=== PATIENT | female | born 1975 | race Caucasian/White ===

== ENCOUNTER 2020-01-07 22:23 | Observation (INO) | payer BC, SELFPAY ==
--- NOTE | ~2020-01-07 | US_ITS ---
EXAMINATION: US right upper quadrant DATE: 01/08/2020 10:05 INDICATION: Cholecystitis. Right upper quadrant abdominal pain. TECHNIQUE: Multiple grayscale and Doppler ultrasound images of the abdomen were obtained. COMPARISON: None FINDINGS: The pancreatic head and body are normal in appearance. The pancreatic tail is not visualized. Liver has normal echogenicity and contour, with a smooth surface. No liver lesion identified. There is mild intrahepatic biliary ductal dilation. Portal venous flow was seen in the hepatopetal, normal directi on and has normal Doppler waveform. There are multiple small mobile shadowing gallstones at the gallb ladder fundus. Gallbladder is otherwise normal. Sonographic Mendoza sign was reported as negative by t textile artist.Common bile duct measures up to 6 mm in maximal diameter which is at the upper limits of normal. IMPRESSION: 1. Cholelithiasis with mild intrahepatic biliary ductal dilation and borderline dilation of the commo n bile duct and could not exclude a distal at least partially obstructing stone. Correlate with liver function tests and could consider MRCP for further evaluation. 2. Otherwise normal gallbladder with no wall thickening or sonographic Mendoza sign to suggest to sugg est acute cholecystitis. Reviewed, dictated and finalized at location A. IMPRESSION: 1. Cholelithiasis with mild intrahepatic biliary ductal dilation and borderline dilation of the common bile duct and could not exclude a distal at least parti ally obstructing stone. Correlate with liver function tests and could consider MRCP for further evaluation. 2. Otherwise normal gallbladder with no wall thickening or sonographic Mendoza s ign to suggest to suggest acute cholecystitis.
--- NOTE | ~2020-01-07 | CT_ITS ---
EXAMINATION: CT abdomen pelvis w con INDICATION: Right upper quadrant abdominal pain, nausea, vomiting TECHNIQUE: Computed tomographic images of the abdomen and pelvis were obtained after the administrati on of 100 cc of Omnipaque 350 intravenous contrast. The dose-length product (DLP) was 1348.23 mGy-cm. Automated exposure control and iterative reconstruction technique were employed. COMPARISON: None available FINDINGS: Minimal dependent atelectasis is present in the lung bases. The heart size is normal. There is a 6 mm subcapsular cyst in the right hepatic lobe. The liver is otherwise unremarkable. A 10 mm a rhoda of low attenuation in the inferior pole of the spleen likely represents a lymphangioma or hemangi fracisco. The pancreas and adrenal glands are normal. There is mild gallbladder distention. The common ijeoma e duct measures up to 9 mm in its midportion. There is mild intrahepatic biliary dilatation. The kidn eys are unremarkable. No pathologically enlarged abdominal or pelvic lymph nodes are identified. Ther e is no free intraperitoneal gas or evidence of bowel obstruction. The appendix is normal. 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 IMPRESSION: 1. Gallbladder distention with mild enlargement of the mid common bile duct and mild intrahepatic ijeoma iary dilatation. Findings could reflect choledocholithiasis although none is seen. Reviewed, dictated and finalized at location A. IMPRESSION: 1. Gallbladder distention with mild enlargement of the mid common bile duct and mild intrahepatic biliary dilatation. Findings could reflect choledocholithias is although none is seen.
--- NOTE | ~2020-01-07 | XR_ITS ---
EXAMINATION: 01/08/2020 14:45 DATE: 01/10/2020 13:41 CDT INDICATION: Cholecystectomy, intraoperative cholangiogram TECHNIQUE: Intraoperative cholangiogram with 2 contrast run(s) provided for review. 20 seconds of flu oroscopy. 111 fluoroscopic images. FINDINGS: There is cannulation and contrast administration into the cystic duct remnant. The cystic a nd common bile duct are mildly dilated. There is a filling defect in the common duct which may repres ent a gas bubble or stone. No obstruction of flow of contrast into the duodenum. IMPRESSION: 1. Filling defect in the common bile duct, iatrogenic gas versus stone. No obstruction. 2: Mildly dilated common bile duct.. Please refer to procedural report for details. Reviewed, dictated and finalized at location A. IMPRESSION: 1. Filling defect in the common bile duct, iatrogenic gas versus stone. No obs truction. 2: Mildly dilated common bile duct.. Please refer to procedural report for det ails.
[2020-01-07 22:25] VITALS: BP 138/90; PULSE 77; RESP 18; TEMP 36.6; O2SAT 100
--- NOTE | 2020-01-07 22:34 | ED.ABDPAIN ---
HPI - Abdominal Pain General Chief Complaint: Abdominal Pain Stated Complaint: nausea and tender abd Time Seen by Provider: 01/07/20 22:29 Source: patient Mode of arrival: ambulatory Limitations: no limitations History of Present Illness HPI narrative: The pt is a 44 y/o female who presents to the ED c/o epigastric ABD pain onset one day ago. Pt states that she had eaten some chips yesterday when the pain began, and states that the pain resolved with Pepcid and Motrin. She notes that she also felt some gas between her shoulder blades at that time. She began to experience the pain again today with no relief from either of these; she took Motrin again at [id number]. Pt states that the pain is beginning to radiate under the breast. Pt reports nausea, but denies fever. She notes that she still has her gallbladder. MD elicited complaint: abdominal pain Onset (ago): day(s) (1) Location: epigastric Radiation: other (Under the breast) Relieving factors: medication (Motrin and Pepcid (no longer)) Associated symptoms: nausea and other ( Gas between the shoulder blades (Resolved)) Treatments prior to arrival: NSAIDs Related Data Home Medications Medication Instructions Recorded Confirmed citalopram mg 01/07/20 hydrochlorothiazide 01/07/20 losartan 01/07/20 potassium chloride meq PO 01/07/20 Allergies Allergy/AdvReac Type Severity Reaction Status Date / Time No Known Allergies Allergy Unverified 01/07/20 22:28 Review of Systems Review of Systems: All systems reviewed & are unremarkable except as noted in HPI and below Constitutional: Constitutional: Denies fever(s) Gastrointestinal: Gastrointestinal: Reports abdominal pain (Epigastric, radiating to underneath the breast), Reports nausea and Reports other ( Gas between the shoulder blades (Resolved)) [facility] Past Medical History Medical History (Updated 01/08/20 @ 00:44 by Aditya Isaac DO) Depression HTN (hypertension) Surgical History Surgical History (Updated 01/07/20 @ 22:39 by Everardo Tinajero) H/O tubal ligation Social History Social History (Updated 01/07/20 @ 22:39 by Everardo Tinajero) Smoking status: Never smoker Gender identity (if verbalized by the patient): Female Exam Narrative: Exam Narrative: APPEARANCE: No acute distress, nontoxic, resting in bed HEENT: Normocephalic, atraumatic, OMM RESPIRATORY: No respiratory distress, clear to auscultation bilaterally with no rhonchi wheezing or rales CARDIOVASCULAR: RRR s murmur ABDOMINAL: Soft, nondistended, tender palpation epigastric and right upper quadrant, no tenderness right lower quadrant, left lower quadrant left upper quadrant, no rebound or guarding MUSCULOSKELETAl: Moves all extremities. No clubbing, cyanosis or edema. NEURO: Awake and alert. Following commands, speech normal, no focal deficits SKIN:: Warm, dry. Normal Color PSYCHIATRIC: Normal affect/mood Course Course Emergency Course: Discussed Dr. Spencer presentation work-up. His admission to his service. Request patient started on Zosyn. Request a.m. hypertensive medications be ordered and patient to have ultrasound in the a.m. Discussed with patient and family results of workup and diagnosis. Discussed need for admission. Patient and family understand and agree to current treatment plan Vital Signs Vital signs: Vital Signs Temperature 97.9 F 01/07/20 22:25 Pulse Rate 77 01/07/20 22:25 Respiratory Rate 18 01/07/20 22:25 Blood Pressure 138/90 01/07/20 22:25 Pulse Oximetry 100 01/07/20 22:25 Temperature 97.9 F 01/07/20 22:25 Pulse Rate 85 01/07/20 23:30 Respiratory Rate 18 01/07/20 23:30 Blood Pressure 129/82 01/07/20 23:30 Pulse Oximetry 99 01/07/20 23:30 MDM - Abdominal Pain Lab Data Result diagrams: 01/07/20 22:57 01/07/20 23:17 Labs: Lab Results 01/07/20 01/07/20 01/07/20 Range/Units 22:57 22:57 22:57 WBC 15.3 H (4.5-10.0) K/mm3
[2020-01-07] MEDS: LACTATED RINGERS 1,000 ML 999 ML IV CONT (22:53)
[2020-01-07] MEDS: ONDANSETRON INJ 4 MG/2 ML VIAL IV PUSH (22:53)
[2020-01-07] MEDS: MORPHINE SULFATE 4 MG/ML INJ IV PUSH (22:54)
[2020-01-07 23:05] LABS: Basophils Absolute Auto 0.1 K/mm3 (0.0-0.1); Basophils Percent Auto 0.8 % (0.2-1.2); Eosinophils Absolute Auto 0.2 K/mm3 (0-0.3); Eosinophils Percent Auto 1.2 % (0-4.4); Hematocrit 40.2 % (37.0-47.0); Hemoglobin 13.5 g/dL (12.0-15.0); Immature Granulocyte Absolute 0.06 K/mm3 (0.00-0.031); Immature Granulocyte Percent A 0.4 % (0-0.5); Lymphocytes Absolute Auto 2.08 K/mm3 (0.9-3.2); Lymphocytes Percent Auto 13.6 % (18.3-44.2); Mean Corpuscular HGB Conc 33.6 g/dl (32-36); Mean Corpuscular Hemoglobin 28.8 pg (26-34); Mean Corpuscular Volume 85.9 fl (80-100); Mean Platelet Volume 9.3 fl (7.4-10.4); Monocytes Absolute Auto 0.6 K/mm3 (0.1-0.6); Monocytes Percent Auto 4.1 % (2.6-8.5); Neutrophils Absolute Auto 12.2 K/mm3 (1.3-6.7); Neutrophils Percent Auto 79.9 % (45.5-73.1); Platelet Count Result 401 k/mm3 (150-375); Red Blood Count 4.68 M/mm3 (4.2-5.4); Red Cell Distribution Width 12.5 % (11.5-14.5); White Blood Count 15.3 K/mm3 (4.5-10.0)
--- NOTE | 2020-01-07 23:11 | PC.NURSE ---
pt down to ct
[2020-01-07 23:15] LABS: Add Urine Microscopic? YES; Appearance Urine Clear (Clear); Bacteria Urine Trace /hpf; Bilirubin Urine Negative (Negative); Blood Urine Negative (Negative); Color Urine Yellow (Yellow); Glucose Urine UA Negative (Negative); Ketones Urine Negative (Negative); Leukocyte Esterase Ur Trace LEU/UL (Negative); Mucus Urine Rare /lpf; Nitrate Urine Negative (Negative); Protein Urine Negative (Negative); RBC Urine 0-2 /hpf (0-2); Specific Grav Ur 1.023 (1.001-1.035); Squamous Epithelial Cell Urine Few /hpf (Few); WBC Urine 0-3 /hpf
[2020-01-07 23:17] LABS: Alanine Aminotransferase 165 U/L (4-35); Albumin Level 4.2 g/dL (3.5-5.1); Alkaline Phosphatase 107 U/L (38-126); Aspartate Amino Transferase 265 U/L (14-36); Bilirubin,Total 1.1 mg/dL (0.2-1.3); Blood Urea Nitrogen 18 mg/dL (7-17); Calcium 8.8 mg/dL (8.4-10.2); Carbon Dioxide 27 mmol/L (22-30); Chloride 100 mmol/L (98-107); Estimated CRCL calculation 94 ml/min; Estimated Glomerular Filt Rate > 60; Glucose 103 mg/dL (65-105); Lipase 72 U/L (23-300); Potassium 3.5 mmol/L (3.4-5.0); Sodium 136 mmol/L (137-145)
[2020-01-07 23:19] LABS: Estimated CRCL calculation 94 ml/min; Estimated Glomerular Filt Rate > 60
[2020-01-07 23:30] VITALS: BP 129/82; PULSE 85; RESP 18; O2SAT 99
--- NOTE | 2020-01-07 23:30 | PC.NURSE ---
ASSUMED CARE OF PT AT THIS TIME.
[2020-01-08] VITALS (16 sets, daily range): BP systolic 106–138; BP diastolic 63–96; PULSE 62–101; RESP 12–18; TEMP 36.1–36.8; O2SAT 91–100; BMI 37.6
--- NOTE | 2020-01-08 01:14 | ADMGEN ---
This patient, Fidelina Morales, was admitted to 2 Medical Room 242-. Patient/family oriented to hospital policies and general routines including ID bracelet, bed and alarms, visiting hours, pain management, procedures, bathroom and other care routines, personal items, smoking policy, room service/diet, and visiting hours. Valuables list has been completed. Information on how to activate the Rapid Response Team has been discussed. Patient/Family are encouraged to report perceived risks to care and to ask questions if they do not understand what they are told or what they should do.
[2020-01-08] MEDS: LACTATED RINGERS 1,000 ML 125 ML IV CONT ×3 (01:39→20:13)
[2020-01-08] MEDS: ONDANSETRON INJ 4 MG/2 ML VIAL IV PUSH ×3 (06:39→21:52)
[2020-01-08] MEDS: MORPHINE SULFATE 4 MG/ML INJ IV PUSH ×2 (06:40→16:47)
--- NOTE | 2020-01-08 08:08 | PM.IMHP ---
H&P: HPI History of Present Illness Chief complaint: Cholecystitis Narrative: Fidelina Morales is a 44 year old female with a history of hypertension, who presented the emergency department with epigastric abdominal pain. She reports that two nights ago she had eaten Fritos for a snack in the evening and shortly after developed some mild epigastric abdominal pain that radiated to between her shoulder blades. She took Zantac and Ibuprofen, which alleviated her pain. Symptoms resolved and she felt normal the next morning. Yesterday afternoon, she ate pulled pork, mashed potatoes, and Fritos for late lunch, and shortly after developed the same epigastric abdominal pain. This pain then radiated to the right upper quadrant and again to her back. The pain yesterday was more severe and unrelenting. Since the abdominal pain was not subsiding, she decided to present to the emergency department for further evaluation. CT scan of the abdomen and pelvis showed gallbladder distension with mild enlargement of the mid common bile duct and mild intrahepatic biliary dilatation to 9 mm. No cholelithiasis or choledocholithiasis evident on the CT scan. Labs revealed a white blood cell count of 15,300, total bilirubin of 1.1, AST 265, ALT 165, alk phos 107, and normal lipase. Our service was contacted by the emergency department physician for the suspicion possible acute cholecystitis. The patient is now being seen on the medical floor. She reports that her abdominal has improved with the PRN pain medication but remains constant. Denies nausea at this time. She reports developing nausea yesterday but no vomiting. Denies fever, chills, diarrhea, or change in her bowel habits. She denies having this abdominal pain in the past. No other complaints at this time. Review of Systems Constitutional: Constitutional: Reports as per HPI, Denies chills, Denies excessive sweating, Denies fatigue, Denies fever(s), Denies headache(s) and Denies weakness Eyes: Eyes: Denies change in vision and Denies loss of vision ENT: Reports Normal hearing present, Denies dizziness and Denies headache(s) Cardiovascular: Cardiovascular: Denies chest pain, Denies syncope, Denies leg edema, Denies lightheadedness, Denies radiating jaw, neck or arm pain and Denies dyspnea Respiratory: Respiratory: Denies cough, Denies dyspnea and Denies wheezing Gastrointestinal: Gastrointestinal: Reports as per HPI, Reports abdominal pain (epigastric and RUQ), Denies melena, Denies hematochezia, Denies change in bowel habits, Denies constipation, Denies dysphagia, Denies diarrhea, Reports nausea, Denies vomiting and Reports other (Last BM yesterday.) Musculoskeletal: Musculoskeletal: Denies deformity, Denies joint swelling, Denies radiating pain into limb and Denies tingling Integumentary/Breasts: Skin/Breast: Denies pruritus, Denies wounds and Denies jaundice Neurologic: Reports Normal hearing present, Denies confusion, Denies dizziness, Denies syncope, Denies headache(s), Denies loss of vision, Denies tingling, Denies tremor(s) and Denies weakness Psychiatric: Psychiatric: Denies anxiety and Reports depression (takes citalopram for mild depressive symptoms) Endocrine: Endocrine: Denies cold intolerance, Denies excessive sweating, Denies fatigue and Denies heat intolerance Hematologic/Lymphatic: Hematologic/Lymphatic: Denies easy bleeding and Denies easy bruising Allergic/Immunologic: Allergic/Immunologic: Denies wheezing PMFSH Past Medical History Medical History Depression HTN (hypertension) Surgical History Surgical History H/O tubal ligation Family History Family History Mother Hypertension Depression Father High cholesterol Social History Social History Smoking status: Former smoker T
[2020-01-08] MEDS: LOSARTAN POTASSIUM 100 MG TABLET PO (08:40)
[2020-01-08] MEDS: hydroCHLOROthiazide 25 MG TABLET PO (08:40)
[2020-01-08 09:26] LABS: Basophils Absolute Auto 0.1 K/mm3 (0.0-0.1); Basophils Percent Auto 0.9 % (0.2-1.2); Eosinophils Absolute Auto 0.2 K/mm3 (0-0.3); Eosinophils Percent Auto 1.8 % (0-4.4); Hematocrit 36.8 % (37.0-47.0); Hemoglobin 12.1 g/dL (12.0-15.0); Immature Granulocyte Absolute 0.04 K/mm3 (0.00-0.031); Immature Granulocyte Percent A 0.4 % (0-0.5); Lymphocytes Absolute Auto 1.63 K/mm3 (0.9-3.2); Lymphocytes Percent Auto 15.5 % (18.3-44.2); Mean Corpuscular HGB Conc 32.9 g/dl (32-36); Mean Corpuscular Hemoglobin 28.9 pg (26-34); Mean Platelet Volume 8.9 fl (7.4-10.4); Monocytes Absolute Auto 0.8 K/mm3 (0.1-0.6); Monocytes Percent Auto 7.7 % (2.6-8.5); Neutrophils Absolute Auto 7.8 K/mm3 (1.3-6.7); Neutrophils Percent Auto 73.7 % (45.5-73.1); Platelet Count Result 319 k/mm3 (150-375); Red Blood Count 4.18 M/mm3 (4.2-5.4); Red Cell Distribution Width 12.6 % (11.5-14.5); White Blood Count 10.5 K/mm3 (4.5-10.0)
[2020-01-08 09:38] LABS: Alanine Aminotransferase 381 U/L (4-35); Albumin Level 3.5 g/dL (3.5-5.1); Alkaline Phosphatase 101 U/L (38-126); Aspartate Amino Transferase 336 U/L (14-36); Bilirubin,Total 0.9 mg/dL (0.2-1.3); Blood Urea Nitrogen 15 mg/dL (7-17); Calcium 8.1 mg/dL (8.4-10.2); Carbon Dioxide 30 mmol/L (22-30); Chloride 101 mmol/L (98-107); Estimated CRCL calculation 97 ml/min; Estimated Glomerular Filt Rate > 60; Glucose 92 mg/dL (65-105); Potassium 3.6 mmol/L (3.4-5.0); Sodium 135 mmol/L (137-145)
--- NOTE | 2020-01-08 13:06 | PC.NURSE ---
Patient to OR per bed. IV saline locked.
--- NOTE | 2020-01-08 13:11 | P.HPUP_ITS ---
History and Physical Update Update Date/Time: 01/08/20 13:11 History and Physical has been reviewed, including an updated exam of the patient. There are NO changes in the patient's condition. Patient did have an ultrasound that proved that she has gallstones in her gallbladder. Also que stion whether there might be a distal common bile duct stone. Risks, benefits, and alternatives of a laparoscopic cholecystectomy, possible intraoperative cholangiogram, possible open cholecystectomy. Have been discussed and questions answered. Patient agrees to proceed with procedure.
[2020-01-08] MEDS: LACTATED RINGERS 1,000 ML 30 ML IV CONT ×2 (13:15→15:17)
--- NOTE | 2020-01-08 13:37 | WPDANESEPP ---
Anes - Eval Pre Procedure Procedure: Operation Date: 01/08/20 14:00 Proposed Procedures p Laparoscopic Cholecystectomy,Possible Intraoperative Cholangiograms,Possible Open - Filippo Spencer MD Date/Time: 01/08/20 13:37 Surgeon: Dr Spencer Preop Diagnosis: Cholecystitis Pre Op Diagnosis: Cholecystitis Patient Data Age: 44 Gender: F Height: 5 ft 6 in Weight: 105.8 kg Last Vital Signs Temp 36.8 C 01/08/20 13:25 Pulse 85 01/08/20 13:25 Resp 18 01/08/20 13:25 BP 136/87 01/08/20 13:25 Pulse Ox 98 01/08/20 13:25 Allergies Allergy/AdvReac Type Severity Reaction Status Date / Time No Known Allergies Allergy Unverified 01/07/20 22:28 Home Medications Medication Instructions Recorded Confirmed Type citalopram 40 mg PO DAILY 01/07/20 01/08/20 History hydrochlorothiazide 25 mg PO DAILY 01/07/20 01/08/20 History losartan 100 mg PO DAILY 01/07/20 01/08/20 History potassium chloride 20 meq PO DAILY 01/07/20 01/08/20 History Laboratory Tests 01/07/20 01/07/20 01/07/20 22:57 22:57 22:57 WBC 15.3 K/mm3 H K/mm3 (4.5-10.0) RBC 4.68 M/mm3 M/mm3 (4.2-5.4) Hgb 13.5 g/dL g/dL (12.0-15.0) Hct 40.2 % % (37.0-47.0) MCV 85.9 fl fl (80-100) MCH 28.8 pg pg (26-34) MCHC 33.6 g/dl g/dl (32-36) RDW 12.5 % % (11.5-14.5) Plt Count 401 k/mm3 H k/mm3 (150-375) MPV 9.3 fl fl (7.4-10.4) Immature Gran % (Auto) 0.4 % % (0-0.5) Neut % (Auto) 79.9 % H % (45.5-73.1) Lymph % (Auto) 13.6 % L % (18.3-44.2) [place] % (Auto) 4.1 % % (2.6-8.5) Eos % (Auto) 1.2 % % (0-4.4) Baso % (Auto) 0.8 % % (0.2-1.2) Lymph # (Auto) 2.08 K/mm3 K/mm3 (0.9-3.2) [place] # (Auto) 0.6 K/mm3 K/mm3 (0.1-0.6) Eos # (Auto) 0.2 K/mm3 K/mm3 (0-0.3) Baso # (Auto) 0.1 K/mm3 K/mm3 (0.0-0.1) Abs Immat Gran (auto) 0.06 K/mm3 H K/mm3 (0.00-0.031) Absolute Neuts (auto) 12.2 K/mm3 H K/mm3 (1.3-6.7) Absolute Nucleated RBC 0.0 K/mm3 K/mm3 (0.0-0.012) Nucleated RBC % 0.0 % % (0.0-0.2) Sodium 136 mmol/L L mmol/L (137-145) Potassium 3.5 mmol/L mmol/L (3.4-5.0) Chloride 100 mmol/L mmol/L (98-107) Carbon Dioxide 27 mmol/L mmol/L (22-30) BUN 18 mg/dL H mg/dL (7-17) Creatinine 0.80 mg/dL mg/dL (0.7-1.0) Estim Creat Clear Calc 94 ml/min ml/min Estimated GFR > 60 (59 - ) Glucose 103 mg/dL mg/dL (65-105) Calcium 8.8 mg/dL mg/dL (8.4-10.2) Total Bilirubin 1.1 mg/dL mg/dL (0.2-1.3) AST 265 U/L H U/L (14-36) ALT 165 U/L H U/L (4-35) Alkaline Phosphatase 107 U/L U/L (38-126) Total Protein 7.0 g/dL g/dL (6.3-8.2) Albumin 4.2 g/dL g/dL (3.5-5.1) Lipase 72 U/L U/L (23-300) Urine Color Yellow (Yellow) Urine Appearance Clear (Clear) Urine pH 6.0 (5.0-9.0) Ur Specific [place] 1.023 (1.001-1.035) Urine Protein Negative mg/dL mg/dL (Negative) Urine Glucose (UA) Negative mg/dL mg/dL (Negative) Urine Ketones Negative mg/dL mg/dL (Negative) Ur Blood (Man) Negative (Negative) Urine Nitrate Negative (Negative) Urine Bilirubin Negative (Negative) Urine Urobilinogen 2.0 mg/dL H mg/dL (<2.0) Leukocyte Esterase Rfl Trace FRAN/UL H FRAN/UL (Negative) Urine RBC 0-2 /hpf /hpf (0-2) Urine WBC 0-3 /hpf /hpf Ur Squamous Epith Cells Few /hpf /hpf (Few) Urine Bacteria Trace /hpf /hpf Urine Mucus Rare /lpf /lpf 01/07/20 01/08/20 01/08/20 23:17 09:19 09:19 WBC 10.5 K/mm3 H K/mm3 (4.5-10.0) RBC 4.18 M/mm
[2020-01-08] MEDS: BUPIVACAINE/EPINEPHRINE 0.5% 30 ML VIAL 20 ML INFILTRATE (14:10)
--- NOTE | 2020-01-08 15:21 | P.OP_ITS ---
Procedure Note - Detailed Date of procedure: 01/08/20 Pre-op diagnosis: Cholecystitis Procedure performed: Laparoscopic cholecystectomy with intraoperative cholangiogram. Description of procedure: Procedure Details: Patient was seen preoperatively in the holding area and risks, benefits and alternatives confirmed. Patient was taken to the operating room and general anesthesia was induced. A time out was then preformed with the surgery team confirming patient and site of surgery. The abdomen was prepped and draped in the usual sterile fashion. Incision was made just below the umbilicus. Two stay sutures of O- Vicryl were used to elevate the mid-line fascia beneath the umbilicus and a small incision was made under direct vision. The peritoneum was entered. The 12 mm Rodriguez cannula was introduced under direct vision. First under low flow and then under high flow the abdomen was insufflated with carbon dioxide never exceeding a pressure of 14. Three 5 mm trocars were then introduced under direct vision. The following trocars were introduced under direct vision: a 5 mm in the epigastrium and two 5 mm trocars along the right costal margin. There were not many adhesions so I immediately began working at the level of the triangle of [place] to expose the cystic duct and cystic artery. The gall bladder was grasped and the cystic duct and artery were dissected free and clipped with an 5 mm endo-clip countersinker balance screw hole. A small hole was made in the cystic duct with endoshears and a cholagio-cath introduced. A cholangiogram was obtained revealing free flow into the cystic duct, common bile duct, common hepatic, right and left hepatic ducts with free flow into the duodenum with an equivical filling defect in extrahepatic biliary tree and some dilation. Filling defect appeared to be about 5 mm in size and seemed be floating in the common duct. Did not appear that I would be able to flush this through the more narrow distal common duct. Therefore, I decided to leave it as was and we will repeat her liver function tests and if she has further symptoms consider MRCP to check and see if there is a stone there. If it shows up then she may need ERCP in the near future. The catheter was removed and the cystic duct was clipped with a 5 mm endoclip-countersinker balance screw hole. The cystic duct was then transected. The cystic artery was also transected at this point. The gall bladder was removed using electrocautery and then removed using a large 10 mm grasper via the umbilical incision. The trocars were removed visualizing hemostasis and the remaining gas evacuated. The large trocar site at the umbilicus was closed with an 0 vicryl figure of 8 suture. The 2 stay sutures mentioned above on either side of the fascia were also tied together to help approximate this midline fascia. Further local anesthetic was placed into each incision for postop pain control. The skin incisions were closed with a subcuticular of 4-0 Monocryl. Surgical glue then was applied to all the incisions. Patient tolerated the procedure well was taken to the recovery room in good condition. Anesthesia: BELLEA Surgeon: Filippo Spencer MD [place] Investigator: CHIN Salas, OR 1st assist Estimated blood loss (mL): 20 Drains: No Packing: No Pathology: yes (The gallbladder) Complications: No immediate complications Condition: stable Disposition: PACU Findings: Palpable stones within otherwise noninflamed gallbladder. The equivocal finding of a possible 5 mm filling defect that was floating in the distal common bile duct with good flow of contrast into the duodenum.
--- NOTE | 2020-01-08 16:43 | PC.NURSE ---
Patient return from OR per bed.
[2020-01-08] MEDS: SENNA/DOCUSATE SODIUM TABLET 2 TAB PO (20:11)
[2020-01-09 02:00] VITALS: BP 118/72; PULSE 64; RESP 18; TEMP 36.5; O2SAT 96
[2020-01-09] MEDS: ONDANSETRON INJ 4 MG/2 ML VIAL IV PUSH ×2 (04:56→11:39)
[2020-01-09] MEDS: LACTATED RINGERS 1,000 ML 125 ML IV CONT (05:26)
[2020-01-09 06:00] VITALS: BP 109/63; PULSE 80; RESP 18; TEMP 37; O2SAT 97
[2020-01-09 06:24] LABS: Basophils Absolute Auto 0.1 K/mm3 (0.0-0.1); Basophils Percent Auto 0.4 % (0.2-1.2); Eosinophils Percent Auto 0.1 % (0-4.4); Hematocrit 36.7 % (37.0-47.0); Hemoglobin 12.1 g/dL (12.0-15.0); Immature Granulocyte Absolute 0.08 K/mm3 (0.00-0.031); Immature Granulocyte Percent A 0.5 % (0-0.5); Lymphocytes Absolute Auto 1.48 K/mm3 (0.9-3.2); Lymphocytes Percent Auto 8.9 % (18.3-44.2); Mean Corpuscular Hemoglobin 29.2 pg (26-34); Mean Corpuscular Volume 88.4 fl (80-100); Mean Platelet Volume 9.2 fl (7.4-10.4); Monocytes Absolute Auto 0.7 K/mm3 (0.1-0.6); Monocytes Percent Auto 4.1 % (2.6-8.5); Neutrophils Absolute Auto 14.3 K/mm3 (1.3-6.7); Platelet Count Result 372 k/mm3 (150-375); Red Blood Count 4.15 M/mm3 (4.2-5.4); Red Cell Distribution Width 12.3 % (11.5-14.5); White Blood Count 16.7 K/mm3 (4.5-10.0)
[2020-01-09 06:58] LABS: Alanine Aminotransferase 277 U/L (4-35); Albumin Level 3.6 g/dL (3.5-5.1); Alkaline Phosphatase 89 U/L (38-126); Aspartate Amino Transferase 124 U/L (14-36); Bilirubin,Total 0.5 mg/dL (0.2-1.3); Blood Urea Nitrogen 9 mg/dL (7-17); Calcium 8.3 mg/dL (8.4-10.2); Carbon Dioxide 32 mmol/L (22-30); Chloride 96 mmol/L (98-107); Estimated CRCL calculation 126 ml/min; Estimated Glomerular Filt Rate > 60; Glucose 111 mg/dL (65-105); Lipase 21 U/L (23-300); Sodium 134 mmol/L (137-145)
[2020-01-09] MEDS: ENOXAPARIN 40 MG/0.4 ML SYRINGE SUB-Q (08:59)
[2020-01-09] MEDS: hydroCHLOROthiazide 25 MG TABLET PO (08:59)
[2020-01-09] MEDS: LOSARTAN POTASSIUM 100 MG TABLET PO (08:59)
[2020-01-09] MEDS: ACETAMINOPHEN 500 MG TABLET PO (09:21)
--- NOTE | 2020-01-09 11:06 | PC.NURSE ---
Notified Dr. Joseph of potassium (3.0) today.
--- NOTE | 2020-01-09 11:10 | WPDANESPN ---
Anes - Prog Note Post-Op Date/Time: 01/09/20 11:10 Cardiovascular status: normal Respiratory status: normal Airway patency: baseline Mental status: baseline Post-Op hydration status: normal Vital Signs: Last Vital Signs Temp 37.0 C 01/09/20 06:00 Pulse 80 01/09/20 06:00 Resp 18 01/09/20 06:00 BP 109/63 01/09/20 06:00 Pulse Ox 97 01/09/20 06:00 I/O: Intake & Output 01/08/20 01/09/20 01/09/20 23:59 07:59 15:59 Intake Total 1500 1600 Balance 1500 1600 Laboratory Tests 01/09/20 05:05 01/09/20 05:05 01/09/20 01/09/20 05:05 05:05 WBC 16.7 H RBC 4.15 L Hgb 12.1 Hct 36.7 L MCV 88.4 MCH 29.2 MCHC 33.0 RDW 12.3 Plt Count 372 MPV 9.2 Immature Gran % (Auto) 0.5 Neut % (Auto) 86.0 H Lymph % (Auto) 8.9 L [place] % (Auto) 4.1 Eos % (Auto) 0.1 Baso % (Auto) 0.4 Lymph # (Auto) 1.48 [place] # (Auto) 0.7 H Eos # (Auto) 0.0 Baso # (Auto) 0.1 Abs Immat Gran (auto) 0.08 H Absolute Neuts (auto) 14.3 H Absolute Nucleated RBC 0.0 Nucleated RBC % 0.0 Sodium 134 L Potassium 3.0 L Chloride 96 L Carbon Dioxide 32 H BUN 9 D Creatinine 0.60 L Estim Creat Clear Calc 126 Estimated GFR > 60 Glucose 111 H Calcium 8.3 L Total Bilirubin 0.5 AST 124 H ALT 277 H Alkaline Phosphatase 89 Total Protein 6.0 L Albumin 3.6 Lipase 21 L Post-procedural complaints: none Patient Feedback: Patient satisfied with anesthetic care.
--- NOTE | 2020-01-09 11:41 | PM.DS ---
DS: Diagnosis Admitting Diagnosis Admitting Diagnosis: Cholecystitis, unspecified Discharge Diagnosis (1) Cholelithiasis with chronic cholecystitis: Code(s): K80.10 - Calculus of gallbladder with chronic cholecystitis without obstruction Status: Acute Assessment and Plan: Patient underwent laparoscopic cholecystectomy by Dr. Spencer on January 08, 2020. Intraoperative cholangiogram as well as follow-up LFTs showed no evidence of common bile duct stones. (2) Elevated LFTs: Code(s): R94.5 - Abnormal results of liver function studies Status: Acute Assessment and Plan: Air bubble seen on cholangiogram but follow-up LFTs were improved after surgery. Patient discharged. No suggestion of common bile duct stones. (3) Obesity (BMI 30-39.9): Code(s): E66.9 - Obesity, unspecified Status: Acute (4) HTN (hypertension): Code(s): I10 - Essential (primary) hypertension Status: Acute (5) Hypokalemia: Code(s): E87.6 - Hypokalemia Status: Acute Assessment and Plan: Patient will resume her potassium supplement 20 mEq daily at discharge. DS: Summary Time Spent with Patient Time attestation: Total time spent providing and/or coordinating discharge services: Patient came to the emergency room late in the evening on January 06. She had postprandial epigastric abdominal pain after a fatty meal. Evaluation suggested cholecystitis. An ultrasound done on 01/07 showed gallstones and possibly common bile duct stones with a slightly dilated common bile duct. The patient was taken to surgery on 01/[address] Spencer. She underwent laparoscopic cholecystectomy with intraoperative cholangiogram. There was evidence of a an air bubble or possibly a small stone in the distal common bile duct on cholangiogram. The patient was observed overnight. She was doing well with good oral intake ambulating and no inordinate amount of discomfort. Her follow-up liver function tests the day after surgery were improved. She is discharged now in good condition. She did have some mild hypokalemia but will resume taking her potassium supplement at home. Exam Const: General: comfortable and no acute distress; No confusion Orientation/consciousness: patient oriented x3 and No confusion Resp: Effort & Inspection: normal respiratory effort Auscultation: clear to auscultation bilaterally Cardio: Rate: regular rate Rhythm: regular rhythm GI: Inspection: non-distended and incision (All incisions healing well) GI Palp: Yes Soft to palpation, Yes Tenderness to palpation present (GI) (Mild appropriate postoperative tenderness), No Guarding due to palpation present (GI) and No Rebound tenderness present Auscultation: normal bowel sounds Neuro: General: patient oriented x3, no focal motor deficits and No confusion Extrem: General: no calf tenderness and no edema Psych: Affect: normal affect Insight: Good insight present (Psych) Judgement: Good judgement present (Psych) DS: Data Data Completed and Pending Pending studies at discharge: Pending at discharge 01/08/20 14:02 Surgical [PTH] Routine Labs on day of discharge: Labs from last 24 hours 01/09/20 01/09/20 05:05 05:05 WBC 16.7 H RBC 4.15 L Hgb 12.1 Hct 36.7 L MCV 88.4 MCH 29.2 MCHC 33.0 RDW 12.3 Plt Count 372 MPV 9.2 Immature Gran % (Auto) 0.5 Neut % (Auto) 86.0 H Lymph % (Auto) 8.9 L Ware % (Auto) 4.1 Eos % (Auto) 0.1 Baso % (Auto) 0.4 Lymph # (Auto) 1.48 Ware # (Auto) 0.7 H Eos # (Auto) 0.0 Baso # (Auto) 0.1 Abs Immat Gran (auto) 0.08 H Absolute Neuts (auto) 14.3 H Absolute Nucleated RBC 0.0 Nucleated RBC % 0.0 Sodium 134 L Potassium 3.0 L Chloride 96 L Carbon Dioxide 32 H BUN 9 D Creatinine 0.60 L Estim Creat Clear Calc 126 Estimated GFR > 60 Glucose 111 H Calcium 8.3 L Total Bilirubin 0.5 AST 124 H ALT 277 H Alkaline Phosphat
[2020-01-09 12:12] VITALS: O2SAT 95
== END 2020-01-09 12:50 | disposition home or self-care (01) ==
LOC: ANHED 01-08 00:44 → ANH2MED 01-08 01:02
PROVIDERS: Admitting Provider Surgery; Emergency Provider Emergency Medicine; Visit Provider Surgery
PROC: 0FT44ZZ Resection of Gallbladder, Percutaneous Endoscopic Approach (ICD-10-PCS; CPT 47562; principal; 2020-01-08 14:00)
DX: K80.10 Calculus of gallbladder with chronic cholecystitis without obstruction (principal); I10 Essential (primary) hypertension; R94.5 Abnormal results of liver function studies; E87.6 Hypokalemia; F41.9 Anxiety disorder, unspecified; E66.9 Obesity, unspecified; Z68.37 Body mass index [BMI] 37.0-37.9, adult; Z87.891 Personal history of nicotine dependence
CPT/HCPCS: 47563; 36415; 74177; 74300; 76705; 80053; 81001; 81025; 83690; 85025; 88304; 96361; 96365; 96366; 96375; 96376; 99285; A9270; G0378; J0330; J1100; J1650; J2250; J2270; J2370; J2405; J2543; J2704; J2710; J3010; J7120; Q9966; Q9967

== ENCOUNTER 2021-11-28 07:35 | Outpatient (CLI) | payer BC, SELFPAY ==
--- NOTE | 2021-11-30 17:30 | WPDSLEEPSTUD ---
Sleep Study Date of Study: 11/28/21 Ordering Provider: Viri Gamez MD Interpreting Physician: Olga López MD Sleep Study Type: CPAP Titration Height: 1.68 m Weight: 123.831 kg Body Mass Index: 44.0 Neck Circumference (inches): 16.5 [place]: 9 Reason for Sleep Study Snoring, nonrestorative sleep, excessive daytime sleepiness * HSAT Oct 04, 2021 with AHI 71.1 Sleep History Fidelina Morales is a 46-year-old female who had a portable home sleep apnea test on October 04, 2021 showing 351 obstructive apneas, 9 mixed apneas and 13 central apneas with 160 hypopneas. The supine apnea-hypopnea index was 58.2, nonsupine apnea-hypopnea index was 71.9. Desaturation index was 72.7 with a minimum desaturation to 53%, mean saturation of 89% and 93.7 minute spent below 88%. She had moderate snoring. This was a type III home sleep test through an outside facility. She was referred for a CPAP titration. She does not feel rested after a full night of sleep. This has been going on for more than 2 years. 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 There is a positive family history of sleep disordered breathing in her brother who in April of 2021. She does not awaken from sleep feeling short of breath. She rarely awakens with heartburn, belching or coughing. She comes Linda nor sleep. She frequently has trouble sleeping with a cold. She does not wake up gasping for breath at night or have breathing problems at night reported to her byOthers. She does not sweat excessively at night or notice her heart pounding or beating irregularly at night. She does not allow herself to fall asleep during the day but feels sleepy enough that she could go to sleep if she had an opportunity. She occasionally falls asleep involuntarily but never falls asleep while driving. She rarely has loss of muscle tone with strong emotion. She rarely has daytime difficulties due to excessive sleepiness. 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 She does not feel paralyzed on waking or falling asleep. She rarely has vivid dreamlike scenes upon awakening or falling asleep. She does not feel afraid to go to sleep. She does not have nightmares. She does not remember dreams. She does not have racing thoughts. She occasionally feels sad or depressed. She rarely has anxiety. She denies muscular tension, noticing parts of her body jerking, kicking at night, crawling and aching feelings in her legs or any kind of leg pain at night. She does not have morning jaw pain or grind her teeth during sleep. She is not bothered by pain during the day. She rarely is awakened by pain at night. She constantly wakes up feeling stiff in the morning with sore achy muscles and pain in the neck and spine. She has headaches, memory problems, fatigue and depression. Normal bedtime is between 10:00 p.m. and 11:00 p.m. falling asleep within 30-45 minutes, waking once at night to urinate. She wakes the morning at 5:30 a.m.. On weekends bedtime is later, 11:00 p.m. to 12 midnight and she wakes later, 7:00 a.m. to 8:00 a.m.. She estimates getting 6-8 hours of sleep normally. On the weekends she does not awaken using an alarm. She does not generally take naps. A short nap is not refreshing. She is usually drowsy in the morning for 3 hours or longer. She feels better in the morning compared to other times of day. Habits: Former tobacco user quit 25 years ago. Caffeine Mountain Dew, 6 servings per day. No alcohol or recreational drugs. [facility] Past Medical History Medical History Depression Depression HTN (hypertension) KIM (obstructive sleep apnea) Surgical History Surgical History H/O tubal ligation History of cholecystectomy Family History Family History (Reviewed 11/30/21 @ 17:35 by Olga Woodall
[2021-11-30 17:46] VITALS: BMI 44.0
== END 2021-11-29 06:49 | disposition home or self-care (01) ==
LOC: ANHCSM 07:36
PROVIDERS: PCP Family Medicine; Visit Provider Family Medicine
DX: G47.33 Obstructive sleep apnea (adult) (pediatric) (principal)
CPT/HCPCS: 95811

== ENCOUNTER 2023-05-22 02:35 | Day surgery (SDC) | payer BC, SELFPAY ==
[2023-05-10 12:40] VITALS: BMI 38.2
--- NOTE | 2023-05-21 16:52 | PM.HPGS ---
History of Present Illness History of Present Illness Consent: Risks, benefits, and alternatives have been discussed and questions answered. Patient agrees to proceed with procedure. Chief complaint: other fecal abnormalities Narrative: Fidelina Morales is a 48 year old female referred for colon cancer screening. A recent Cologuard test was positive Review of Systems Review of Systems: All systems reviewed & are unremarkable except as noted in HPI and below PMFSH Past Medical History Medical History Depression Depression HTN (hypertension) KIM (obstructive sleep apnea) (~09/2021) Positive colorectal cancer screening using Cologuard test Surgical History Surgical History H/O tubal ligation History of cholecystectomy Family History Family History Mother Hypertension Depression Father High cholesterol Hypertension Sibling Pulmonary hypertension Sibling Depression Hypertension Alcohol abuse Grandparent Diabetes mellitus Social History Social History Smoking packs per day: 0.5 Smoking cigarettes per day: 10.0 Years smoked: 4 Smoking pack-years: 2.00 Smoking status: Former smoker Tobacco type: cigarettes Smoking end date: 10/21/95 Alcohol intake: never Substance use: never Substance use type: does not use Lack of Transportation: No Lack of Food: Never True Current Housing: I Have Housing Concerned About Future Housing: No Difficulty Paying Gas/Electric Bills: No Difficulty Paying for Meds: No Currently Unemployed: No Education: Master's Degree or Higher Difficulty w/ Childcare or Family Care: No Living arrangements: with family Additional living arrangements comments: Has a and two children. 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 Gender identity (if verbalized by the patient): Female Spiritual care concerns: No Agree to blood products: Yes Meds Home Medications and Allergies Home Medications Medication Instructions Recorded Confirmed Type losartan 100 mg tablet 100 mg PO DAILY #90 tabs 09/30/22 05/10/23 Rx tirzepatide 5 mg/0.5 mL 5 mg subcut WEEKLY 02/20/23 05/10/23 History subcutaneous pen injector citalopram 40 mg tablet 40 mg PO DAILY #30 tabs 02/24/23 05/10/23 Rx progesterone micronized 100 mg 100 mg PO QAM 03/14/23 05/10/23 History capsule bupropion HCl 300 mg 24 hr tablet, 300 mg PO QAM #30 tabs 03/26/23 05/10/23 Rx extended release hydrochlorothiazide 25 mg tablet 25 mg PO DAILY #30 tabs 04/13/23 05/10/23 Rx Allergies Allergy/AdvReac Type Severity Reaction Status Date / Time No Known Allergies Allergy Verified 05/22/23 10:41 Exam Const: General: alert Orientation/consciousness: patient oriented x3 Resp: Auscultation: clear to auscultation bilaterally Cardio: Rate: regular rate Rhythm: regular rhythm GI: GI Palp: Yes Soft to palpation and No Tenderness to palpation present (GI) Neuro: General: patient oriented x3 Assessment and Plan Assessment and plan (1) Positive colorectal cancer screening using Cologuard test: Code(s): R19.5 - Other fecal abnormalities Status: Acute Assessment and Plan: Colonoscopy with possible biopsy or polypectomy or cautery or injection of substances.
[2023-05-22 10:43] VITALS: BP 127/85; PULSE 80; RESP 19; TEMP 36.8; O2SAT 96
[2023-05-22] MEDS: LACTATED RINGERS 1,000 ML 150 ML IV CONT (10:57)
--- NOTE | 2023-05-22 11:21 | WPDANESEPPF ---
Anes - Initial Pre Proc Eval Procedure: Operation Date: 05/22/23 11:30 Proposed Procedures p Colonoscopy - Phuc Larsen MD Date/Time: 05/22/23 11:21 Surgeon: Phuc Larsen MD Pre Op Diagnosis: other fecal abnormalities Patient Data Age: 48 Gender: F Height: 1.68 m Weight: 101.7 kg Last Vital Signs Temp 98.2 F 05/22/23 10:43 Pulse 80 05/22/23 10:43 Resp 19 05/22/23 10:43 BP 127/85 05/22/23 10:43 Pulse Ox 96 05/22/23 10:43 O2 Del Method Room Air 05/22/23 10:43 Allergies Allergy/AdvReac Type Severity Reaction Status Date / Time No Known Allergies Allergy Verified 05/22/23 10:41 Home Medications Medication Instructions Recorded Confirmed Type losartan 100 mg tablet 100 mg PO DAILY #90 tabs 09/30/22 05/10/23 Rx tirzepatide 5 mg/0.5 mL 5 mg subcut WEEKLY 02/20/23 05/10/23 History subcutaneous pen injector citalopram 40 mg tablet 40 mg PO DAILY #30 tabs 02/24/23 05/10/23 Rx progesterone micronized 100 mg 100 mg PO QAM 03/14/23 05/10/23 History capsule bupropion HCl 300 mg 24 hr tablet, 300 mg PO QAM #30 tabs 03/26/23 05/10/23 Rx extended release hydrochlorothiazide 25 mg tablet 25 mg PO DAILY #30 tabs 04/13/23 05/10/23 Rx Patient hx anesthesia problems: none Family hx anesthesia problems: none Results Review: All pre-operative results and documents have been reviewed as part of the pre-operative evaluation. [facility] Past Medical History Medical History (Updated 04/08/23 @ 12:09 by Andreia Linares PA-C) Depression Depression HTN (hypertension) KIM (obstructive sleep apnea) (~09/2021) Positive colorectal cancer screening using Cologuard test Surgical History Surgical History H/O tubal ligation History of cholecystectomy Family History Family History Mother Hypertension Depression Father High cholesterol Hypertension Sibling Pulmonary hypertension Sibling Depression Hypertension Alcohol abuse Grandparent Diabetes mellitus Social History Social History Smoking packs per day: 0.5 Smoking cigarettes per day: 10.0 Years smoked: 4 Smoking pack-years: 2.00 Smoking status: Former smoker Tobacco type: cigarettes Smoking end date: 10/21/95 Alcohol intake: never Substance use: never Substance use type: does not use Lack of Transportation: No Lack of Food: Never True Current Housing: I Have Housing Concerned About Future Housing: No Difficulty Paying Gas/Electric Bills: No Difficulty Paying for Meds: No Currently Unemployed: No Education: Master's Degree or Higher Difficulty w/ Childcare or Family Care: No Living arrangements: with family Additional living arrangements comments: Has a and two children. 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 Gender identity (if verbalized by the patient): Female Spiritual care concerns: No Agree to blood products: Yes Anes - Eval Final PreProcedure Day of Procedure 05/22/23 11:21 Patient weight: obese Heart: regular rate and rhythm Lungs: clear to auscultation Airway: Mallampati scale class III Neurological: alert and oriented Last oral intake: >/= 8 hours ASA classification: III Emergent: no Anesthetic plan: proceed Anesthesia type and monitoring: general GIVS and standard monitoring Results Review: All pre-operative results and documents have been reviewed as part of the pre-operative evaluation. Informed Consent: The patient's anesthetic plan and its attendant risks and benefits were discussed with the patient/family/POA. Questions were solicited and answers provided to the satisfaction of the patient/family/POA.
[2023-05-22 12:04] VITALS: BP 104/65; PULSE 73; RESP 26; O2SAT 98
[2023-05-22 12:14] VITALS: BP 113/74; PULSE 68; RESP 18; O2SAT 100
[2023-05-22 12:24] VITALS: BP 110/70; PULSE 69; RESP 18; O2SAT 100
== END 2023-05-22 12:32 | disposition home or self-care (01) ==
PROVIDERS: PCP Family Medicine; Visit Provider Internal Medicine Gastroenterology
PROC: 0DJD8ZZ Inspection of Lower Intestinal Tract, Via Natural or Artificial Opening Endoscopic (ICD-10-PCS; CPT 45378; principal; 2023-05-22 11:30)
DX: Z12.11 Encounter for screening for malignant neoplasm of colon (principal); D12.8 Benign neoplasm of rectum; R19.5 Other fecal abnormalities; I10 Essential (primary) hypertension; G47.33 Obstructive sleep apnea (adult) (pediatric); F32.A Depression, unspecified; Z87.891 Personal history of nicotine dependence; E66.9 Obesity, unspecified; Z68.36 Body mass index [BMI] 36.0-36.9, adult
CPT/HCPCS: 45385; 88305; J2704; J7120

== ENCOUNTER 2023-06-05 08:23 | Outpatient (CLI) | payer BC, SELFPAY ==
[2023-06-05 08:38] LABS: Basophils Absolute Auto 0.1 K/mm3 (0.0-0.1); Basophils Percent Auto 0.8 % (0.2-1.2); Eosinophils Absolute Auto 0.1 K/mm3 (0-0.3); Eosinophils Percent Auto 0.7 % (0-4.4); Hematocrit 42.3 % (37.0-47.0); Hemoglobin 13.5 g/dL (12.0-15.0); Immature Granulocyte Absolute 0.04 K/mm3 (0.00-0.031); Immature Granulocyte Percent A 0.4 % (0-0.5); Lymphocytes Absolute Auto 1.79 K/mm3 (0.9-3.2); Lymphocytes Percent Auto 15.9 % (18.3-44.2); Mean Corpuscular HGB Conc 31.9 g/dl (32-36); Mean Corpuscular Hemoglobin 28.6 pg (26-34); Mean Corpuscular Volume 89.6 fl (80-100); Mean Platelet Volume 8.9 fl (7.4-10.4); Monocytes Absolute Auto 0.6 K/mm3 (0.1-0.6); Monocytes Percent Auto 5.7 % (2.6-8.5); Neutrophils Absolute Auto 8.6 K/mm3 (1.3-6.7); Neutrophils Percent Auto 76.5 % (45.5-73.1); Platelet Count Result 399 k/mm3 (150-375); Red Blood Count 4.72 M/mm3 (4.2-5.4); Red Cell Distribution Width 12.8 % (11.5-14.5); White Blood Count 11.2 K/mm3 (4.5-10.0)
--- NOTE | 2023-06-05 08:41 | ECG_ITS ---
Measurements Intervals [place] Rate: 67 P: 18 MD: 144 QRS: 57 QRSD: 86 T: 39 QT: 403 QTc: 427 Interpretive Statements SINUS RHYTHM NO PREVIOUS ECG AVAILABLE FOR COMPARISON Electronically Signed On 06-05-2023 15:22:18 CDT by Rodrigo Shah M.D.
[2023-06-05 08:50] LABS: Anion Gap 5 mmol/L (8-16); Blood Urea Nitrogen 21 mg/dL (7-17); Calcium 8.7 mg/dL (8.4-10.2); Carbon Dioxide 32 mmol/L (22-30); Chloride 97 mmol/L (98-107); Estimated Glomerular Filt Rate > 60; Glucose 101 mg/dL (65-110); Potassium 3.5 mmol/L (3.4-5.0); Sodium 134 mmol/L (137-145)
== END 2023-06-05 08:24 | disposition home or self-care (01) ==
PROVIDERS: PCP Family Medicine; Referring Provider Anesthesiology; Visit Provider Obstetrics & Gynecology
DX: Z51.81 Encounter for therapeutic drug level monitoring (principal); R10.2 Pelvic and perineal pain; N92.6 Irregular menstruation, unspecified; I10 Essential (primary) hypertension; Z01.818 Encounter for other preprocedural examination
CPT/HCPCS: 36415; 80048; 85025; 86850; 86900; 86901; 93005

== ENCOUNTER 2023-06-07 00:16 | Day surgery (SDC) | payer BC, SELFPAY ==
--- NOTE | 2023-05-30 16:41 | PC.NURSE ---
Report to the Outpatient Waiting Room, entrance under the green pavilion located off [facility], at time 1000 on date 06/07/23. Planned Procedure Time: 1200. Time changes happen often and if your time is changed the preop area will call you the afternoon before. - You and your visitor will be asked to self-screen and do not enter if you have any COVID symptoms. - A mask is optional within the hospital at this time. Patients may have clear liquids (water, carbonated beverages, clear teas, apple juice) until 3 hours prior to surgery with a maximum of 20 ounces. 0900 - No food from midnight until time of surgery - Infants may have breast milk until 4 hours before surgery, formula 6 hours prior to surgery. - Children will be allowed to drink immediately following surgery. If applicable, please bring a bottle or sippy cup to assist with drinking. Juice, water, soda, and popsicles are readily available. For infants on formula, please bring formula the day of surgery. Pacifiers are allowed. Take the following medications with a SIP of water the morning of surgery: bupropion, citalorpam DO NOT STOP ANY OF YOUR OTHER PRESCRIPTION MEDICATIONS PRIOR TO SURGERY ?EXCEPT THE FOLLOWING Medications to discontinue per physician vitamins & supplements, hydrochlorothiazide, losartan, progesterone, tirzepatide Date to take last dose tirzepatide- 05/26/23, vitamins & supplements- 06/04/23, hydrochlorothiazide & losartan 06/06/23 Please no make-up, nail swazi, hairspray, perfume, deodorant, or body powder the day of surgery. No jewelry (including any body piercings) or valuables the day of surgery, leave them at home. Please take a shower or bath the night before, or the morning of, surgery with an antibacterial soap hibiclens. Wear comfortable, loose fitting clothing. Children are encouraged to wear pajamas. - Jewelry must be removed prior to entering the operating room. Rings and piercings that are not removed may be cut off. - The hospital will not accept responsibility for valuables. - Please leave all valuables, including medications, at home the day of surgery. If you are going home after surgery, a licensed tower truck driver must drive you home. - NO public transportation without another adult if you receive anesthesia. - We recommend that an adult stay with you for 24 hours following discharge. - We also recommend that you do not drive, make important decision, drink alcoholic beverages, or take any drugs that were not prescribed by your health care provider for at least 24 hours after your discharge time. For Pediatric surgeries, we recommend two adults accompany the child home. Follow any additional instructions given to you from your surgeon. If you or anyone in your household have experienced Covid symptoms in the past week, please notify your surgeon or the nurse liaison at the phone number below for possible testing. Telephone instructions given to Patient- Fidelina Morales and asked if any additional questions and then verbalized understanding. Patient advised to call surgeon office or pre surgery nurse liaison [phone] if any additional questions.
[2023-05-30 17:00] VITALS: BMI 36.5
--- NOTE | 2023-06-05 11:58 | PM.IMHP ---
H&P: HPI History of Present Illness Date/Time: 06/05/23 11:58 Chief Complaint: Enlarged uterus and anterior hernia Narrative: This is a 48-year-old female admitted for robotic total vaginal hysterectomy and bilateral salpingectomy secondary to an enlarged uterus: And vaginal bleeding following a failed ablation. She will also have an anterior hernia the repaired with Dr. Jameson. Risks and benefits from my standpoint reviewed including not exclusive of , aspiration pneumonia, bleeding, transfusion, perforation injury to bowel, bladder, ureters, or other internal organs with need for laparotomy. She received the [facility] handout entitled hysterectomy as well as the de [place] handout. She had all questions answered. She asked to proceed. [facility] Past Medical History Medical History Depression Depression HTN (hypertension) KIM (obstructive sleep apnea) (~09/2021) Positive colorectal cancer screening using Cologuard test Surgical History Surgical History H/O tubal ligation History of cholecystectomy Family History Family History Mother Hypertension Depression Father High cholesterol Hypertension Sibling Pulmonary hypertension Sibling Depression Hypertension Alcohol abuse Grandparent Diabetes mellitus Social History Social History Smoking packs per day: 0.5 Smoking cigarettes per day: 10.0 Years smoked: 4 Smoking pack-years: 2.00 Smoking status: Former smoker Tobacco type: cigarettes Smoking end date: 10/21/95 Alcohol intake: never Substance use: never Substance use type: does not use Lack of Transportation: No Lack of Food: Never True Current Housing: I Have Housing Concerned About Future Housing: No Difficulty Paying Gas/Electric Bills: No Difficulty Paying for Meds: No Currently Unemployed: No Education: Master's Degree or Higher Difficulty w/ Childcare or Family Care: No Living arrangements: with family Additional living arrangements comments: Has a and two children. 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 Gender identity (if verbalized by the patient): Female Spiritual care concerns: No Agree to blood products: Yes Meds Home Medications and Allergies Home Medications Medication Instructions Recorded Confirmed Type losartan 100 mg tablet 100 mg PO DAILY #90 tabs 09/30/22 05/30/23 Rx tirzepatide 5 mg/0.5 mL 2.5 mg subcut WEEKLY 02/20/23 05/30/23 History subcutaneous pen injector citalopram 40 mg tablet 40 mg PO DAILY #30 tabs 02/24/23 05/30/23 Rx progesterone micronized 100 mg 100 mg PO QAM 03/14/23 05/30/23 History capsule bupropion HCl 300 mg 24 hr tablet, 300 mg PO QAM #30 tabs 03/26/23 05/30/23 Rx extended release hydrochlorothiazide 25 mg tablet 25 mg PO DAILY #30 tabs 04/13/23 05/30/23 Rx Acidophilus Probiotic 1 tab-cap PO DAILY 05/30/23 05/30/23 History ascorbate [id number] 1 tab-cap PO DAILY 05/30/23 05/30/23 History Allergies Allergy/AdvReac Type Severity Reaction Status Date / Time No Known Allergies Allergy Verified 05/30/23 16:29 Exam Const: General: cooperative, healthy appearing and comfortable Nutritional Appearance: overweight Orientation/consciousness: oriented to person, oriented to place and oriented to time HENMT: Head: normal to inspection Resp: Effort & Inspection: normal respiratory effort Cardio: Rate: regular rate Rhythm: regular rhythm Heart sounds: S1 normal heart sound present and S2 normal heart sound present GI: Inspection: normal to inspection : External Female Exam: normal external appearance Speculum Exam - Vagina: normal appearance of the vagina Speculum Exam - Cervix:
[2023-06-07] VITALS (10 sets, daily range): BP systolic 90–137; BP diastolic 52–89; PULSE 71–109; RESP 14–20; TEMP 36.1–37.2; O2SAT 95–100
--- NOTE | 2023-06-07 06:28 | WPDHPUPDATE1 ---
History and Physical Update Update Date/Time: 06/07/23 06:28 History and Physical has been reviewed, including an updated exam of the patient. There are NO changes in the patient's condition. Risks, benefits, and alternatives have been discussed and questions answered. Patient agrees to proceed with procedure.
[2023-06-07] MEDS: ACETAMINOPHEN 500 MG TABLET 1000 MG PO (08:52)
[2023-06-07] MEDS: KETOROLAC 15 MG/ML VIAL (*BKC) IV PUSH (08:53)
[2023-06-07] MEDS: SCOPOLAMINE 1.5 MG PATCH TRANSDERM (09:31)
--- NOTE | 2023-06-07 09:59 | WPDANESEPPF ---
Anes - Initial Pre Proc Eval Procedure: Operation Date: 06/07/23 10:15 Proposed Procedures p Robotic Assisted Total Vaginal Hysterectomy with Bilateral Salpingectomy - Nick Elizabeth MD s Open Incisional Periumbilical Ventral Hernia Repair Without Mesh - Randy Miramontes MD Date/Time: 06/07/23 09:59 Surgeon: Nick Elizabeth MD Pre Op Diagnosis: pelvic pain, irreg bleeding, inc hernia Patient Data Age: 48 Gender: F Height: 1.68 m Weight: 101.5 kg Last Vital Signs Temp 36.6 C 06/07/23 09:15 Pulse 71 06/07/23 09:15 Resp 18 06/07/23 09:15 BP 114/77 06/07/23 09:15 Pulse Ox 99 06/07/23 09:15 O2 Del Method Room Air 06/07/23 09:15 Allergies Allergy/AdvReac Type Severity Reaction Status Date / Time No Known Allergies Allergy Verified 06/07/23 09:26 Home Medications Medication Instructions Recorded Confirmed Type losartan 100 mg tablet 100 mg PO DAILY #90 tabs 09/30/22 05/30/23 Rx tirzepatide 5 mg/0.5 mL 2.5 mg subcut WEEKLY 02/20/23 05/30/23 History subcutaneous pen injector citalopram 40 mg tablet 40 mg PO DAILY #30 tabs 02/24/23 05/30/23 Rx progesterone micronized 100 mg 100 mg PO QAM 03/14/23 05/30/23 History capsule bupropion HCl 300 mg 24 hr tablet, 300 mg PO QAM #30 tabs 03/26/23 05/30/23 Rx extended release hydrochlorothiazide 25 mg tablet 25 mg PO DAILY #30 tabs 04/13/23 05/30/23 Rx Acidophilus Probiotic 1 tab-cap PO DAILY 05/30/23 05/30/23 History ascorbate obceuoc-acnfulrn-vqk 1 tab-cap PO DAILY 05/30/23 05/30/23 History hydrocodone 5 mg-acetaminophen 325 1 tablet PO Q4H PRN pain #30 tabs 06/07/23 Rx mg tablet Patient hx anesthesia problems: none Family hx anesthesia problems: none Results Review: All pre-operative results and documents have been reviewed as part of the pre-operative evaluation. [facility] Past Medical History Medical History Depression Depression HTN (hypertension) KIM (obstructive sleep apnea) (~09/2021) Positive colorectal cancer screening using Cologuard test Surgical History Surgical History H/O tubal ligation History of cholecystectomy Family History Family History Mother Hypertension Depression Father High cholesterol Hypertension Sibling Pulmonary hypertension Sibling Depression Hypertension Alcohol abuse Grandparent Diabetes mellitus Social History Social History Smoking packs per day: 0.5 Smoking cigarettes per day: 10.0 Years smoked: 4 Smoking pack-years: 2.00 Smoking status: Former smoker Tobacco type: cigarettes Smoking end date: 10/21/95 Alcohol intake: never Substance use: never Substance use type: does not use Lack of Transportation: No Lack of Food: Never True Current Housing: I Have Housing Concerned About Future Housing: No Difficulty Paying Gas/Electric Bills: No Difficulty Paying for Meds: No Currently Unemployed: No Education: Master's Degree or Higher Difficulty w/ Childcare or Family Care: No Living arrangements: with family Additional living arrangements comments: Has a and two children. 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 Gender identity (if verbalized by the patient): Female Spiritual care concerns: No Agree to blood products: Yes Anes - Eval Final PreProcedure Day of Procedure 06/07/23 09:59 Patient weight: obese Heart: regular rate and rhythm Lungs: clear to auscultation Airway: Mallampati scale class II Neurological: alert and oriented Last oral intake: >/= 8 hours ASA classification: III Emergent: no Anesthetic plan: proceed Anesthesia type and monitoring: general ETT and standard monitoring Results Review:
--- NOTE | 2023-06-07 10:10 | PM.IMHP ---
H&P: HPI History of Present Illness Date/Time: 06/07/23 10:10 Chief Complaint: Periumbilical port site incisional hernia, reducible Narrative: Ms Morales is a 48 year old female that presents to the office for an evaluation of an umbilical hernia. Patient reports that she started Tirzepatide about 12 weeks ago and with this she has lost about 40 pounds. She would like to continue to lose weight. She stated now she notices a bulge at her umbilicus. She states she is not sure if it was there prior to losing the weight but now along with the bulge she is noticing a cramping feeling at her umbilicus when bending.? She had a tubal ligation 15+ years ago. She had a lap deepthi in 2019. She is in the process of getting scheduled for a hysterectomy with Dr Angel Elizabeth, she would like to have this and umbilical hernia repair at the same time. PFSH Medical History? Depression Depression HTN (hypertension) KIM (obstructive sleep apnea) (~09/2021) Surgical History? H/O tubal ligation History of cholecystectomy Family History? Mother Hypertension DepressionFather High cholesterol HypertensionSibling?? Pulmonary hypertensionSibling Depression Hypertension Alcohol abuseGrandparent Diabetes mellitus Social History? Smoking packs per day:? 0.5 Smoking cigarettes per day:? 10.0 Years smoked:? 4 Smoking pack-years:? 2.00 Smoking status:? Former smoker Tobacco type:? cigarettes Smoking end date:? 10/21/95 Alcohol intake:? never Substance use:? never Substance use type:? does not use Lack of Transportation:? No Lack of Food:? Never True Current Housing:? I Have Housing Concerned About Future Housing:? No Difficulty Paying Gas/Electric Bills:? No Difficulty Paying for Meds:? No Currently Unemployed:? No Education:? Master's Degree or Higher Difficulty w/ Childcare or Family Care:? No Living arrangements:? with family Additional living arrangements comments:? Has a and two children. Occupation/Education:? 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 Gender identity (if verbalized by the patient):? Female Spiritual care concerns:? No Agree to blood products:? Yes Intake Vital Signs ? 03/14/2308:45 Height 1.68 m Height (Inches) 66 Weight 113.511 kg Weight (Lbs) 250 lbs., 4 oz. BMI 40.4 BP 134/86 Blood Pressure Location Lt brachial Position Sitting Respiration 14 Pulse 63 Pulse Source Monitor Temp 35.8 C L Temp Source Tympanic Pulse Oximetry (%) 96 Oxygen Delivery Method Room Air Visit Reasons:?Hernia Allergies/Adverse Reactions No Known Allergies Allergy (Verified 03/14/23 08:45) Preferred laboratory: [facility] Pre-Planning preparation?: Yes Review of Systems Const Reports no additional complaints, Denies frequent falls, Denies headache(s) and Reports other (no recent weight change, no fever) Eyes Denies blurry vision, Denies itchy eyes, Denies photophobia and Denies spots in vision ENT Reports Normal hearing present, Denies headache(s), Denies hoarseness, Denies lip swelling and Denies sore throat Card Denies chest pain at rest, Denies irregular heart rhythm and Denies dyspnea Resp Denies chest congestion, Denies cough and Denies dyspnea GI Denies melena and Denies coffee ground emesis Musc Denies abnormal gait and Denies back pain Skin/ Breast Denies new lesions, Denies rash and Denies wounds Neuro Reports Normal hearing present, Denies abnormal gait, Denies confusion, Denies frequent falls, Denies headache(s), Denies convulsions and Denies seizure-like activity Psych Denies confusion and Denies depression Endo Denies cold intolerance and Denies heat intolerance [place]/ Lymph Denies easy bleeding, Denies easy bruising and Denies lymphadenopathy Aller/ Immun Denies
--- NOTE | 2023-06-07 10:13 | WPDHPUPDATE1 ---
History and Physical Update Update Date/Time: 06/07/23 10:13 History and Physical has been reviewed, including an updated exam of the patient. There are NO changes in the patient's condition. Risks, benefits, and alternatives have been discussed and questions answered. Patient agrees to proceed with procedure.
[2023-06-07] MEDS: ceFAZolin 2 GM/D5W 50 ML 2 GM/50 ML BAG IVPB (10:19)
--- NOTE | 2023-06-07 12:01 | PM.DS ---
DS: Admitting Diagnosis Discharge Date Admitting Diagnosis enlarged uterus/vaginal bleeding DS: Discharge Diagnosis Discharge Diagnosis (1) Enlarged uterus: Code(s): N85.2 - Hypertrophy of uterus Status: Acute (2) Vaginal bleeding: Code(s): N93.9 - Abnormal uterine and vaginal bleeding, unspecified Status: Acute DS: Summary Hospital Course Reason for hospitalization: patient was admitted on 06/07/2023 for robotic hysterectomy bilateral salpingectomy Hospital Course: patient underwent an unremarkable procedure. She remained afebrile. She was up, voiding without difficulty, ambulating, eating regular diet, and generally thought complaints. Time Spent with Patient Time attestation: Total time spent providing and/or coordinating discharge services: Exam Const: General: cooperative, healthy appearing and comfortable Nutritional Appearance: average body habitus Orientation/consciousness: oriented to person, oriented to place and oriented to time HENMT: Head: normal to inspection Resp: Effort & Inspection: normal respiratory effort Cardio: Rate: regular rate Rhythm: regular rhythm Heart sounds: S1 normal heart sound present and S2 normal heart sound present GI: Inspection: normal to inspection and incision ( Wounds are clean dry and intact) DS: Data Data Completed and Pending Pending studies at discharge: Pending at discharge 06/07/23 11:18 Surgical [PTH] Routine 06/07/23 11:53 Surgical [PTH] Routine Discharge Plan Discharge Patient Disposition: Home, Self-Care Discharge Instructions: May discharge home at discretion of Dr. Angel Elizabeth . No lifting more than 5 to 10 lb for the next 4 to 6 weeks. Follow-up see Dr. Miramontes in the office in 2 weeks. May shower but no soaking the incision under water for 2 weeks. Wear abdominal binder during daytime when active but may leave abdominal binder off at night when sleeping. Patient Instructions: Laparoscopic Hysterectomy (DC) Stand Alone Forms: General Discharge Instructions Follow-up/Referrals: Nick Martel MD [Physician] - 2 Weeks Discharge Medications: New hydrocodone-acetaminophen 5-325 mg tablet 1 tablet PO Q4H PRN (Reason: pain) Qty: 30 0RF Continued tirzepatide 5 mg/0.5 mL pen injector 2.5 mg subcut WEEKLY Acidophilus Probiotic 1 tab-cap PO DAILY ascorbate vyikyip-fhbklpwa-rqs 1 tab-cap PO DAILY losartan 100 mg tablet 100 mg PO DAILY Qty: 90 1RF citalopram 40 mg tablet 40 mg PO DAILY Qty: 30 5RF bupropion HCl 300 mg tablet extended release 24 hr 300 mg PO QAM Qty: 30 5RF hydrochlorothiazide 25 mg tablet 25 mg PO DAILY Qty: 30 6RF Discontinued progesterone micronized 100 mg capsule 100 mg PO QAM Rx Instructions: off 7 days; repeat cycle
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
[2023-06-07] MEDS: BUPivacaine HCL 0.5% 10 ML AMP 20 ML INFILTRATE (12:18)
[2023-06-07] MEDS: LIDO 1%/EPINEPHRINE 1:100,000 50 ML VIAL 20 ML INFILTRATE (12:19)
[2023-06-07] MEDS: LACTATED RINGERS 1,000 ML 30 ML IV CONT ×2 (12:34)
--- NOTE | 2023-06-07 12:44 | PM.OP ---
Procedure Note - Brief Procedure Note - Brief Date of procedure: 06/07/23 pelvic pain, irreg bleeding, inc hernia Post-op diagnosis: Same Procedure performed: Open reducible periumbilical incisional hernia repair without mesh Surgeon: Randy Miramontes MD Anesthesia: GETA Implants: None Estimated blood loss (mL): 10 Urine output (mL): -100.0 Drains: No Packing: No Pathology: Yes (Hernia sac to pathology) Complications: No immediate complications Condition: Stable Disposition: PACU
[2023-06-07] MEDS: fentaNYL CITRATE INJ (*CRX) 100 MCG/2 ML VIAL 25 MCG IV PUSH ×4 (12:57→13:22)
--- NOTE | 2023-06-07 13:47 | PC.NURSE ---
This patient, Fidelina Morales, was received from PACU on 06/07/23 at 1347. Patient/family oriented to unit policies and routines
[2023-06-07] MEDS: DEXTROSE 5%/LACTATED RINGERS 1,000 ML 125 ML IV CONT (14:16)
[2023-06-07] MEDS: KETOROLAC 30 MG/ML VIAL (*BKC) IV PUSH (14:16)
--- NOTE | 2023-06-07 14:34 | W.PM.PROC2 ---
Procedure Note - Detailed Date of Procedure 06/07/23 Pre-op Diagnosis pelvic pain, irreg bleeding, inc hernia Post-op Diagnosis Same (Reducible periumbilical incisional hernia) Procedure Performed Open reducible periumbilical incisional hernia repair without mesh. Surgeon Randy Miramontes MD Cable Ferry Operator JANET Hodges Anesthesia General Indications Patient is a 48-year-old female who had previously performed a laparoscopic cholecystectomy on several years ago. She has developed a incisional port site hernia in the periumbilical region which is reducible. She is also going to undergo a robotic hysterectomy by Dr. Angel Elizabeth and so I will be repairing the hernia open without mesh after his procedure. Findings The fascial defect measured 3.5cm in diameter. There is no incarcerated contents within the hernia sac. Description of Procedure I entered the operating room after Dr. Angel Elizabeth had finished his robotic hysterectomy. Patient was under general endotracheal anesthesia and stable. A new time-out was then performed identifying the patient and the procedures I was going to perform. She was already getting IV antibiotics. I then proceeded to make a small curved incision just the lower margin of the umbilical fold. I dissected down through the subcutaneous tissue electrocautery to encounter the hernia sac. The hernia sac was then is pre from the surrounding subcutaneous tissue electrocautery I then opened the hernia sac electrocautery and there was no bowel or omentum within the hernia sac. I then resected the hernia sac down to the level the fascia electrocautery and sent the hernia sac to pathology for examination. I swept my finger underneath the anterior abdominal wall and there were no adhesions this area. I measured the defect and was 3.5cm in diameter. Due to the fact that the patient had a hysterectomy and was technically a ?dirty? case I elected not to use any mesh for the repair. 0 Ethibond sutures were then placed for primary closure of the defect. The fascial edges came together easily without any tension. Then irrigated out subcu tissue sterile saline solution hemostasis was excellent. And proceeded to close the subcutaneous tissues utilizing interrupted 3-0 Vicryl sutures in the subcutaneous tissues. The skin edges were then approximated utilizing a running subcuticular 4-0 Monocryl suture. Incision was then cleaned and then skin glue was applied. An abdominal binder was placed at the end the procedure. The patient tolerated the procedure well no complications. All sponges, needles, and instrument counts were correct at the end procedure. EBL was _10__cc for the hernia repair. The patient was awakened and taken to recovery in stable and satisfactory condition. Implants None Estimated Blood Loss 10 Urine Output -100.0 Drains No Packing No Pathology Yes (Hernia sac to pathology) Complications No immediate complications Condition Stable Disposition PACU [facility] Billing Surgery - Charge Forward: Surgery Billing
[2023-06-07] MEDS: MORPHINE SULFATE (*CRX) 4 MG/ML INJ IV PUSH (14:39)
[2023-06-07] MEDS: HYDROcodone/acetaminophen (*CRX) 5-325 MG TABLET 1 TAB PO (20:31)
[2023-06-07] MEDS: DOCUSATE SODIUM 100 MG CAPSULE PO (20:31)
[2023-06-08] MEDS: HYDROcodone/acetaminophen (*CRX) 10-325 MG TABLET 1 TAB PO (02:24)
[2023-06-08 04:03] VITALS: BP 133/78; PULSE 82; RESP 16; TEMP 36.7; O2SAT 95
[2023-06-08] MEDS: ONDANSETRON INJ 4 MG/2 ML VIAL IV PUSH (04:29)
[2023-06-08 05:28] LABS: Basophils Absolute Auto 0.1 K/mm3 (0.0-0.1); Basophils Percent Auto 0.7 % (0.2-1.2); Eosinophils Absolute Auto 0.1 K/mm3 (0-0.3); Eosinophils Percent Auto 0.5 % (0-4.4); Hemoglobin 12.2 g/dL (12.0-15.0); Immature Granulocyte Absolute 0.07 K/mm3 (0.00-0.031); Immature Granulocyte Percent A 0.5 % (0-0.5); Lymphocytes Absolute Auto 2.13 K/mm3 (0.9-3.2); Lymphocytes Percent Auto 13.9 % (18.3-44.2); Mean Corpuscular Hemoglobin 29.6 pg (26-34); Mean Corpuscular Volume 89.8 fl (80-100); Mean Platelet Volume 9.3 fl (7.4-10.4); Monocytes Absolute Auto 0.9 K/mm3 (0.1-0.6); Monocytes Percent Auto 5.7 % (2.6-8.5); Neutrophils Absolute Auto 12.1 K/mm3 (1.3-6.7); Neutrophils Percent Auto 78.7 % (45.5-73.1); Platelet Count Result 362 k/mm3 (150-375); Red Blood Count 4.12 M/mm3 (4.2-5.4); Red Cell Distribution Width 12.6 % (11.5-14.5); White Blood Count 15.4 K/mm3 (4.5-10.0)
[2023-06-08 08:15] VITALS: BP 103/69; PULSE 70; RESP 20; TEMP 36.9; O2SAT 98
[2023-06-08] MEDS: ENOXAPARIN 40 MG/0.4 ML SYRINGE SUB-Q (08:23)
[2023-06-08] MEDS: DOCUSATE SODIUM 100 MG CAPSULE PO (08:23)
[2023-06-08] MEDS: IBUPROFEN 600 MG TABLET PO (08:25)
[2023-06-08] MEDS: HYDROcodone/acetaminophen (*CRX) 5-325 MG TABLET 1 TAB PO (08:29)
--- NOTE | 2023-06-08 09:11 | PM.GYNPNOP ---
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 P: Home to f/u Dr. Angel Elizabeth in 2 weeks, [address] Miramontes per his instructions. (2) Vaginal bleeding: Code(s): N93.9 - Abnormal uterine and vaginal bleeding, unspecified Status: Acute (3) Incisional hernia: Qualifiers: Obstruction and gangrene presence: without obstruction or gangrene Qualified Code(s): K43.2 - Incisional hernia without obstruction or gangrene Code(s): K43.2 - Incisional hernia without obstruction or gangrene Status: Acute Postoperative Procedures: Procedures Operation Date: 06/07/23 10:15 Actual Procedure Side Surgeon p Robotic Assisted Total Vaginal Hysterectomy with Bilateral Salpingectomy Bilateral Nick Elizabeth MD s Open Incisional Periumbilical Ventral Hernia Repair Without Mesh Randy Miramontes MD Postoperative day: 1 Time Spent With Patient Time with patient: less than 15 minutes PATENT LEATHER SORTER- PN:Subj Post-Op Subjective Date/time seen: 06/08/23 09:11 Interval history: Pain OK. Tolerating diet. Voiding. Would like to go home. Exam Narrative: AVSS I/O OK ABD soft, nontender. Incisions c/d/i. EXT nontender PATENT LEATHER SORTER - PN: Obj Data Vital Signs Vital Signs: Vital Signs - 24 hr 06/07/23 09:15 06/07/23 12:34 06/07/23 12:45 Temperature 36.6 C 36.1 C L Pulse Rate 71 103 H 109 H Respiratory Rate 18 14 18 Blood Pressure 114/77 90/60 L 133/89 Pulse Oximetry 99 100 100 Oxygen Delivery Room Air Simple Face Mask Simple Face Mask Oxygen Flow Rate 8 8 06/07/23 13:00 06/07/23 13:15 06/07/23 13:30 Temperature Pulse Rate 93 100 98 Respiratory Rate 14 18 20 Blood Pressure 129/84 132/89 137/88 Pulse Oximetry 98 99 99 Oxygen Delivery Nasal Cannula Nasal Cannula Nasal Cannula Oxygen Flow Rate 2 2 2 06/07/23 13:50 06/07/23 16:00 06/07/23 18:45 Temperature 36.9 C 37.2 C 37.1 C Pulse Rate 97 97 89 Respiratory Rate 16 18 16 Blood Pressure 133/88 112/52 L 119/75 Pulse Oximetry 100 95 95 Oxygen Delivery Oxygen Flow Rate 06/07/23 22:12 06/08/23 04:03 Temperature 37.2 C 36.7 C Pulse Rate 73 82 Respiratory Rate 16 16 Blood Pressure 104/53 L 133/78 Pulse Oximetry 96 95 Oxygen Delivery Oxygen Flow Rate Intake/Output Intake/Output: Intake & Output 06/05/23 06/06/23 06/07/23 06/08/23 23:59 23:59 23:59 23:59 Intake Total 2960 980 Output Total 2800 800 Balance 160 180 Meds/Results Medications: Active Medications Generic Name Dose Route Start Last Admin Trade Name Freq PRN Reason Stop Dose Admin Acetaminophen 1,000 mg 06/07/23 12:41 Acetaminophen 500 Mg Tablet PO Q6H PRN Mild Pain (1-3) or Fever Hydrocodone Bitart/Acetaminophen 1 tab 06/07/23 13:38 06/08/23 02:24 Hydrocodone/Acetaminophen (*Crx) 10-325 Mg Tablet PO 1 tab Q3H PRN Administration Pain Rated 6 or Greater Hydrocodone Bitart/Acetaminophen 1 tab 06/07/23 13:38 06/08/23 08:29 Hydrocodone/Acetaminophen (*Crx) 5-325 Mg Tablet PO 1 tab Q3H PRN Administration Pain Rated 5 or Less Docusate Sodium 100 mg 06/07/23 17:00 06/08/23 08:23 Docusate Sodium 100 Mg Capsule PO 100 mg BID REGGIE Administration Enoxaparin Sodium 40 mg 06/08/23 09:00 06/08/23 08:23 Enoxaparin 40 Mg/0.4 Ml Syringe SUB-Q 40 mg DAILY REGGIE Administration Ibuprofen 600 mg 06/07/23 13:38 06/08/23 08:25 Ibuprofen 600 Mg Tablet PO 600 mg Q6H PRN Administration Cramping Ketorolac Tromethamine 30 mg 06/07/23 13:38 06/07/23 14:16 Ketorolac 30 Mg/Ml Vial (*Bkc) IV PUSH 06/12/23 13:37 30 mg Q6H PRN Administration Pain Rated 4-6 Morphine Sulfate 4 mg 06/07/23 12:41 06/07/23 14:39 Morphine Sulfate (*Crx) 4 Mg/Ml Inj IV PUSH 4 mg Q4H PRN Administration Pain Rated 7-10 Naloxone HCl 0.1 mg 06/07/23 13:38
== END 2023-06-08 11:32 | disposition home or self-care (01) ==
LOC: ANHSURGERY 08:07 → ANHOB2 13:48
PROVIDERS: Surgery; PCP Family Medicine; Visit Provider Obstetrics & Gynecology
PROC: (CPT 58552; principal; 2023-06-07 10:15)
PROC: 0WQF0ZZ Repair Abdominal Wall, Open Approach (ICD-10-PCS; CPT 49593; 2023-06-07 10:15)
DX: N93.9 Abnormal uterine and vaginal bleeding, unspecified (principal); K43.2 Incisional hernia without obstruction or gangrene; F32.A Depression, unspecified; G47.33 Obstructive sleep apnea (adult) (pediatric); I10 Essential (primary) hypertension; Z82.49 Family history of ischemic heart disease and other diseases of the circulatory system; Z87.891 Personal history of nicotine dependence; Z79.899 Other long term (current) drug therapy; E66.9 Obesity, unspecified; Z68.36 Body mass index [BMI] 36.0-36.9, adult
CPT/HCPCS: 58552; 49593; S2900; 36415; 85025; 88302; 88307; 99199; A9270; J0330; J0690; J1100; J1170; J1650; J1885; J2250; J2270; J2405; J2704; J3010; J7030; J7120; J7121

== ENCOUNTER 2023-06-22 23:44 | Observation (INO) | payer BC, SELFPAY ==
--- NOTE | ~2023-06-22 | XR_ITS ---
EXAMINATION: XR chest 1V portable INDICATION: Postoperative vaginal bleeding TECHNIQUE: Portable AP chest at 0105 hours COMPARISON: 04/20/2015 FINDINGS: The lungs are free of acute opacities. No pleural effusion or pneumothorax. The cardiomedia stinal silhouette is normal. Surgical clips in the right upper quadrant are likely from prior cholecy stectomy. IMPRESSION: 1. No acute cardiopulmonary abnormality. Reviewed, dictated and finalized at location A.
[2023-06-22 23:40] VITALS: BP 131/84; PULSE 98; RESP 19; O2SAT 100
[2023-06-22] MEDS: SODIUM CHLORIDE 0.9% IV 2,000 ML 999 ML IV CONT (23:59)
[2023-06-23] VITALS (21 sets, daily range): BP systolic 92–146; BP diastolic 60–78; PULSE 79–97; RESP 12–24; TEMP 36.7–37.2; O2SAT 96–100
--- NOTE | 2023-06-23 | ECG_ITS ---
Measurements Intervals [place] Rate: 85 P: 35 [place]: 142 QRS: 53 QRSD: 82 T: 48 QT: 385 QTc: 460 Interpretive Statements SINUS RHYTHM NONSPECIFIC T-WAVE ABNORMALITY- ANTERIOR LEADS BASELINE ARTIFACT- I, II, III, AVR, AVL BORDERLINE ECG COMPARED TO ECG 06/05/2023 08:48:47 T-WAVE ABNORMALITY NOW PRESENT Electronically Signed On 06-23-2023 7:15:36 CDT by Collins Baldwin D.O.
[2023-06-23] MEDS: TRANEXAMIC ACID 1,000MG/ISO100 1,000 MG/100 ML BAG 200 MG IVPB (00:04)
[2023-06-23 00:07] LABS: Basophils Absolute Auto 0.2 K/mm3 (0.0-0.1); Basophils Percent Auto 1.1 % (0.2-1.2); Eosinophils Absolute Auto 0.4 K/mm3 (0-0.3); Eosinophils Percent Auto 2.3 % (0-4.4); Hematocrit 34.6 % (37.0-47.0); Hemoglobin 11.1 g/dL (12.0-15.0); Immature Granulocyte Absolute 0.09 K/mm3 (0.00-0.031); Immature Granulocyte Percent A 0.5 % (0-0.5); Lymphocytes Absolute Auto 3.26 K/mm3 (0.9-3.2); Lymphocytes Percent Auto 18.9 % (18.3-44.2); Mean Corpuscular HGB Conc 32.1 g/dl (32-36); Mean Corpuscular Hemoglobin 28.2 pg (26-34); Mean Platelet Volume 8.9 fl (7.4-10.4); Monocytes Percent Auto 5.9 % (2.6-8.5); Neutrophils Absolute Auto 12.3 K/mm3 (1.3-6.7); Neutrophils Percent Auto 71.3 % (45.5-73.1); Platelet Count Result 522 k/mm3 (150-375); Red Blood Count 3.93 M/mm3 (4.2-5.4); Red Cell Distribution Width 12.7 % (11.5-14.5); White Blood Count 17.3 K/mm3 (4.5-10.0)
--- NOTE | 2023-06-23 00:15 | ED.GENADULT ---
HPI - General Adult General Chief complaint: Vaginal Bleeding Stated complaint: vaginal bleeding History of Present Illness HPI narrative: This is a 48-year-old female presenting after a hysterectomy performed on 06/07 with vaginal bleeding. Patient had sexual intercourse last night instead of waiting the 8 weeks of pelvic rest. Today she noticed that she was bleeding red blood with the passage of clots. She has been soaking the blood up with a towel. Patient denies use of blood thinners. Patient is complaining of crampy abdominal pain in the suprapubic and right lower quadrant. Sx was performed by Dr. Liv Elizabeth. Related Data Home Medications Medication Instructions Recorded Confirmed tirzepatide 5 mg/0.5 mL 2.5 mg subcut WEEKLY 02/20/23 06/19/23 subcutaneous pen injector Acidophilus Probiotic 1 tab-cap PO DAILY 05/30/23 06/19/23 ascorbate [id number] 1 tab-cap PO DAILY 05/30/23 06/19/23 Allergies Allergy/AdvReac Type Severity Reaction Status Date / Time No Known Allergies Allergy Verified 06/19/23 13:21 [facility] Past Medical History Medical History Depression Depression HTN (hypertension) KIM (obstructive sleep apnea) (~09/2021) Positive colorectal cancer screening using Cologuard test Surgical History Surgical History H/O tubal ligation History of cholecystectomy Family History Family History Mother Hypertension Depression Father High cholesterol Hypertension Sibling Pulmonary hypertension Sibling Depression Hypertension Alcohol abuse Grandparent Diabetes mellitus Social History Social History Smoking packs per day: 0.5 Smoking cigarettes per day: 10.0 Years smoked: 4 Smoking pack-years: 2.00 Smoking status: Former smoker Tobacco type: cigarettes Smoking end date: 10/21/95 Alcohol intake: never Substance use: never Substance use type: does not use Lack of Transportation: No Lack of Food: Never True Current Housing: I Have Housing Concerned About Future Housing: No Difficulty Paying Gas/Electric Bills: No Difficulty Paying for Meds: No Currently Unemployed: No Education: Master's Degree or Higher Difficulty w/ Childcare or Family Care: No Living arrangements: with family Additional living arrangements comments: Has a and two children. 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 Gender identity (if verbalized by the patient): Female Spiritual care concerns: No Agree to blood products: Yes Exam Narrative: APPEARANCE: No apparent distress. Head: atraumatic. EYES: EOMI, NOSE: Atraumatic NECK: Trachea midline RESPIRATORY: No increased rate of breathing CARDIOVASCULAR: RRR, ABDOMINAL: Tenderness in the suprapubic and right lower quadrant. No guarding or rebound. Vaginal bleeding and passage of red clots. MUSCULOSKELETAl: No obvious deformities NEURO: Alert. Moving 4/4 extremities SKIN:: Warm, dry. Normal color PSYCHIATRIC: Normal affect Course Vital Signs Vital signs: Vital Signs Pulse Rate 98 06/22/23 23:40 Respiratory Rate 19 06/22/23 23:40 Blood Pressure 131/84 06/22/23 23:40 Pulse Oximetry 100 06/22/23 23:40 Oxygen Delivery Room Air 06/22/23 23:40 Temperature 98.1 F 06/23/23 01:01 Pulse Rate 85 06/23/23 01:01 Respiratory Rate 20 06/23/23 01:01 Blood Pressure 117/75 06/23/23 01:01 Pulse Oximetry 100 06/23/23 01:01 Oxygen Delivery Room Air 06/22/23 23:40 Medical Decision Making MDM Narrative Medical decision making narrative: -Course: 48-year-old presenting with vaginal hemorrhage. On arrival patient was stable. Case was discussed with Dr. Angela and a workup was or
[2023-06-23 00:20] LABS: Alanine Aminotransferase 36 U/L (6-35); Albumin Level 3.6 g/dL (3.5-5.1); Alkaline Phosphatase 117 U/L (38-126); Anion Gap 6 mmol/L (8-16); Aspartate Amino Transferase 31 U/L (14-36); Bilirubin,Total 0.3 mg/dL (0.2-1.3); Blood Urea Nitrogen 22 mg/dL (7-17); Calcium 8.4 mg/dL (8.4-10.2); Carbon Dioxide 30 mmol/L (22-30); Chloride 97 mmol/L (98-107); Estimated CRCL calculation 65 ml/min; Estimated Glomerular Filt Rate 48; Glucose 95 mg/dL (65-110); Lactic Acid Reflex 0.9 mmol/L (0.7-2.0); Magnesium 1.9 mg/dL (1.6-2.3); Potassium 3.8 mmol/L (3.4-5.0); Sodium 133 mmol/L (137-145)
[2023-06-23 00:34] LABS: INR 1.1; Prothrombin Time 14.2 Seconds (11.1-14.7)
[2023-06-23 00:36] LABS: Partial Thromboplastin Time 29.8 SECONDS (22.3-36.8)
--- NOTE | 2023-06-23 00:41 | PC.NURSE ---
@1215 pt was to be transported to CT. Pt told tech she started to feel unwell. Pt was pale, diaphoretic, and had sudden onset of dizziness. Dr. Noriega at bedside. Pts bleeding was assessed and pt had soaked through pad, and all bedding in less than an hour. Two units of blood was ordered stat at this time.
--- NOTE | 2023-06-23 00:46 | PC.NURSE ---
Per verbal order read back from Dr. Noriega two units of O Neg blood rapidly infused at this time. Pt has remained alert and oriented throughout event.
--- NOTE | 2023-06-23 00:48 | PC.NURSE ---
14g IV placed in right forearm by Dr. hidalgo at this time.
--- NOTE | 2023-06-23 00:50 | PC.NURSE ---
@0050 all padding replaced.
[2023-06-23] MEDS: TUBING, BLOOD SET 2 EACH XX (01:26)
--- NOTE | 2023-06-23 01:27 | PC.NURSE ---
2000 mL NS pulled to prime blood tubing, not administered to pt.
--- NOTE | 2023-06-23 02:35 | PM.IMHP ---
H&P: HPI History of Present Illness Date/Time: 06/23/23 02:35 Chief Complaint: Bleeding Narrative: 48 y/o woman who had a robotic assisted TVHBS on 06/07. She had intercourse 2 nights ago, with no bleeding afterward. Then last evening around 11pm she had heavy vaginal bleeding prompting a visit to the ED. Hgb 11.1, but bleeding heavy, so she was given 2 units PRBC. I was phoned, and she was given 1 gram TXA IV. Bleeding had decreased by the time I arrived. No pain. Review of Systems Review of Systems: All systems reviewed & are unremarkable except as noted in HPI and below PMFSH Past Medical History Medical History Depression Depression HTN (hypertension) KIM (obstructive sleep apnea) (~09/2021) Positive colorectal cancer screening using Cologuard test Surgical History Surgical History H/O tubal ligation History of cholecystectomy Family History Family History Mother Hypertension Depression Father High cholesterol Hypertension Sibling Pulmonary hypertension Sibling Depression Hypertension Alcohol abuse Grandparent Diabetes mellitus Social History Social History Smoking packs per day: 0.5 Smoking cigarettes per day: 10.0 Years smoked: 4 Smoking pack-years: 2.00 Smoking status: Former smoker Tobacco type: cigarettes Smoking end date: 10/21/95 Alcohol intake: never Substance use: never Substance use type: does not use Lack of Transportation: No Lack of Food: Never True Current Housing: I Have Housing Concerned About Future Housing: No Difficulty Paying Gas/Electric Bills: No Difficulty Paying for Meds: No Currently Unemployed: No Education: Master's Degree or Higher Difficulty w/ Childcare or Family Care: No Living arrangements: with family Additional living arrangements comments: Has a and two children. 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 Gender identity (if verbalized by the patient): Female Spiritual care concerns: No Agree to blood products: Yes Meds Home Medications and Allergies Home Medications Medication Instructions Recorded Confirmed Type tirzepatide 5 mg/0.5 mL 2.5 mg subcut WEEKLY 02/20/23 06/19/23 History subcutaneous pen injector citalopram 40 mg tablet 40 mg PO DAILY #30 tabs 02/24/23 06/19/23 Rx bupropion HCl 300 mg 24 hr tablet, 300 mg PO QAM #30 tabs 03/26/23 06/19/23 Rx extended release hydrochlorothiazide 25 mg tablet 25 mg PO DAILY #30 tabs 04/13/23 06/19/23 Rx Acidophilus Probiotic 1 tab-cap PO DAILY 05/30/23 06/19/23 History ascorbate [id number] 1 tab-cap PO DAILY 05/30/23 06/19/23 History losartan 100 mg tablet 100 mg PO DAILY #90 tabs 06/20/23 Rx Allergies Allergy/AdvReac Type Severity Reaction Status Date / Time No Known Allergies Allergy Verified 06/19/23 13:21 Vital Signs Vital Signs - 24 hr 06/22/23 23:40 06/23/23 00:46 06/23/23 01:01 Temperature 36.7 C 36.7 C Pulse Rate 98 97 85 Respiratory Rate 19 24 H 20 Blood Pressure 131/84 132/73 117/75 Pulse Oximetry 100 100 100 Oxygen Delivery Room Air Exam Const: Orientation/consciousness: patient oriented x3 Other: Well-developed, well-nourished female in no acute distress. Neck: Thyroid: thyroid normal Lymphatic: no lymphadenopathy noted (in neck, axilla or inguinal nodes) Resp: Effort & Inspection: normal respiratory effort Auscultation: clear to auscultation bilaterally Cardio: Rate: regular rate Rhythm: regular rhythm Heart sounds: S1 normal heart sound present and S2 normal heart sound present GI: Other: ABD: Soft, nontender, nondistended. No guarding or rebound tenderness. No hepatosplenomegaly. :
--- NOTE | 2023-06-23 04:29 | PC.NURSE ---
Report received from CHIN Bhardwaj at 0345. Patient arrived on unit via stretcher at 0429. Patient assessed and oriented to unit.
[2023-06-23 06:55] LABS: Hemoglobin 10.1 g/dL (12.0-15.0)
== END 2023-06-23 11:35 | disposition home or self-care (01) ==
LOC: ANHED 06-23 02:42 → ANHOB2 06-23 02:59
PROVIDERS: Admitting Provider Obstetrics & Gynecology; Emergency Provider Emergency Medicine; PCP Family Medicine; Visit Provider Obstetrics & Gynecology
DX: N93.9 Abnormal uterine and vaginal bleeding, unspecified (principal); Z90.710 Acquired absence of both cervix and uterus; F32.A Depression, unspecified; I10 Essential (primary) hypertension; G47.33 Obstructive sleep apnea (adult) (pediatric); R94.31 Abnormal electrocardiogram [ECG] [EKG]; Z79.85 Long-term (current) use of injectable non-insulin antidiabetic drugs; Z79.899 Other long term (current) drug therapy; Z82.49 Family history of ischemic heart disease and other diseases of the circulatory system; Z81.8 Family history of other mental and behavioral disorders; Z84.89 Family history of other specified conditions; Z87.891 Personal history of nicotine dependence
CPT/HCPCS: 36415; 36430; 71045; 80053; 83605; 83735; 85014; 85018; 85025; 85610; 85730; 86850; 86900; 86901; 86920; 93005; 99285; G0378; J7030; P9016

== ENCOUNTER 2023-07-13 09:29 | Outpatient (CLI) | payer BC, SELFPAY ==
[2023-07-13 09:45] LABS: Basophils Absolute Auto 0.1 K/mm3 (0.0-0.1); Basophils Percent Auto 0.4 % (0.2-1.2); Eosinophils Percent Auto 0.2 % (0-4.4); Hematocrit 27.8 % (37.0-47.0); Hemoglobin 8.8 g/dL (12.0-15.0); Immature Granulocyte Percent A 1.1 % (0-0.5); Lymphocytes Absolute Auto 1.26 K/mm3 (0.9-3.2); Lymphocytes Percent Auto 6.8 % (18.3-44.2); Mean Corpuscular HGB Conc 31.7 g/dl (32-36); Mean Corpuscular Volume 85.3 fl (80-100); Mean Platelet Volume 8.6 fl (7.4-10.4); Monocytes Absolute Auto 1.1 K/mm3 (0.1-0.6); Monocytes Percent Auto 5.8 % (2.6-8.5); Neutrophils Percent Auto 85.7 % (45.5-73.1); Platelet Count Result 520 k/mm3 (150-375); Red Blood Count 3.26 M/mm3 (4.2-5.4); Red Cell Distribution Width 15.7 % (11.5-14.5); White Blood Count 18.6 K/mm3 (4.5-10.0)
[2023-07-13 09:55] LABS: Alanine Aminotransferase 93 U/L (6-35); Albumin Level 3.2 g/dL (3.5-5.1); Alkaline Phosphatase 329 U/L (38-126); Anion Gap 8 mmol/L (8-16); Aspartate Amino Transferase 57 U/L (14-36); Bilirubin,Total 0.7 mg/dL (0.2-1.3); Blood Urea Nitrogen 14 mg/dL (7-17); Calcium 8.4 mg/dL (8.4-10.2); Carbon Dioxide 30 mmol/L (22-30); Chloride 93 mmol/L (98-107); Estimated Glomerular Filt Rate > 60; Glucose 108 mg/dL (65-110); Potassium 3.2 mmol/L (3.4-5.0); Sodium 131 mmol/L (137-145)
[2023-07-13 11:45] LABS: Iron 18 ug/dL (37-170)
[2023-07-13 12:10] LABS: Free T4 Free Thyroxine 1.87 ng/mL (0.78-2.19)
== END 2023-07-13 09:30 | disposition home or self-care (01) ==
LOC: ANHLAB 09:31
PROVIDERS: PCP Family Medicine; Visit Provider Obstetrics & Gynecology
DX: D64.9 Anemia, unspecified (principal); R53.83 Other fatigue
CPT/HCPCS: 36415; 80053; 82728; 83540; 84439; 84443; 85025

== ENCOUNTER 2025-02-16 08:35 | Outpatient (CLI) | payer BC, SELFPAY ==
--- OUTSIDE RECORDS SUMMARY | 2025-02-16 08:58 | XMS_ITS | Clinical Summary ---
Author Organization [facility] Medical Office Building A Address [address] [place] [address] Care Team Providers Care Technical Applications Scientist Name Role Phone Viri Gamez MD Primary Care Provider [phone] Allergies Active Allergy Reactions Criticality Noted Date Comments Lisinopril Cough Reaction: Cough, Medications potassium chloride ER 20 mEq CR tablet TAKE 1 TABLET(20 MEQ) BY MOUTH DAILY 90 tablet 3 06/01/2020 Active hydroCHLOROthia zide (HYDRODIURIL) 25 mg tablet Take 1 tablet (25 mg total) by mouth daily 90 tablet 3 01/24/2021 Active losartan (COZAAR) 100 mg tablet Take 1 tablet (100 mg total) by mouth daily 90 tablet 3 01/24/2021 Active buPROPion XL (WELLBUTRIN XL) 150 mg 24 hr tablet Take 1 tablet (150 mg total) by mouth every morning 30 tablet 5 03/01/2021 Active citalopram (CeleXA) 40 mg tablet TAKE 1 TABLET(40 MG) BY MOUTH DAILY 90 tablet 3 04/27/2021 Active Active Problems Problem Noted Date Diagnosed Date Bursitis of both shoulders 03/01/2021 Assessment & Plan (03/01/2021 2:47 PM CDT): Suggests subdeltoid and referral to efval and see if ortho aggress and injets Breast cyst, left 10/11/2020 Overview (10/12/2020): Patient had workup at [facility] for lump in the left upper outer quadrant, physician who referred her also palpated a lump in the left axilla. A targeted ultrasound of the area showed a large cyst with debris at the 1:00 a.m. 10 cm from nipple correlating to the palpable lump. Sono survey of the left axilla showed normal soft tissue and fatty replaced lymph node. A recommendation for a yearly screening was made along with the clinical follow-up exam which she is here for today. The cyst is bothering her today and she wishes to have it aspirated she has no other concerns to her breast Class 3 severe obesity with body mass index (BMI) of 40.0 to 44.9 in adult 04/20/2020 Assessment & Plan (03/01/2021 2:49 PM CDT): Morbid obesity is a bmi of 40 or more. Targeted weight loss with portion controll(calorie restriction) ,increased basal activity Levels along with adding an exercise program to lead to gradual weight loss,.Any program of change from weight watchers. To nutra system along with others work. 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 Target few lbs off should drop to nl. Discuss screens for viral source shopuld be considered. And recheck 2 months PE (physical exam), annual 08/07/2017 Assessment & Plan (03/01/2021 2:53 PM CDT): Well exam struggles with wt and season and covid rflair with wandaeisno adjsut meds . Up to date on tetnus.had flu shot not need Colon yet. Assessment & Plan (08/11/2018 11:11 AM CDT): Screens nl for urine with usual uti and none now. a1c at 5.7 and 5.6 nl. Cbc.tsh. cmp nl except isoloated alt mild elevateino. Wt off most important. Snores and with wt mostly likely sleep apnea. Await wt changes and suggest sleep study once stabilizes Assessment & Plan (08/07/2017 11:17 AM CDT): Screening chem, nl. Urine with usual bacturia and without issue. Prn macrobid has on hand. Had Flu shot at work. 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 Recheck labs on return IGT (impaired glucose tolerance) 08/07/2017 Assessment & Plan (03/01/2021 2:50 PM CDT): checkon reutrn and watch diet Assessment & Plan (04/20/2020 5:00 PM CDT): a1c at 5.4 and nl for now Assessment & Plan (09/23/2019 5:52 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): Check on return Assessment & Plan (08/11/2018 11:11 AM CDT): a1c at 5.7 and 5.6 nl. Assessment & Plan (08/07/2017 11:13 AM CDT): a1c at 5.6 and 5.6 andless nl. Recurrent major depressive disorder, in partial remission 08/07/2017 Assessment & Plan (03/01/2021 2:51 PM CDT): Trial add in wellbutrin at 150 a day and re eval with In 3-4 wks optin to double to 2 or 300 if need and tolerated. 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 Assessment & Plan (08/07/2017 11:13 AM CDT): Stable with meds and no changes Benign hypertension 03/06/2014 Overview (01/23/2017): BENIGN HYPERTENSION Assessment & Plan (03/01/2021 2:48 PM CDT): bp high acceptable and elave here for nowHypertension, Medical treament revolves around weight control, salt management, and meds when necessary. long as weight loss is necessary and you are able to drop weight we can cont to monitor the blood pressure and not add meds. Once the weight is not changing then it becomes nesessary to add meds to be able to reach the goal bp. Assessment & Plan (04/20/2020 5:01 PM CDT): The bp on dialyl meds working and donte need more if keeps on gainin g and if loses go back to Every other dayHypertension, Medical treament revolves around weight control, salt management, and meds when necessary. long as weight loss is necessary and you are able to drop weight we can cont to monitor the blood pressure and not add meds. Once the weight is not changing then it becomes nesessary to add meds to be able to reach the goal bp. Assessment & Plan (09/23/2019 5:51 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): The bp good on meds as on and cvonta and check as tends to go downHypertension, Medical treament revolves around weight control, salt management, and meds when necessary. long as weight loss is necessary and you are able to drop weight we can cont to monitor the blood pressure and not add meds. Once the weight is not changing then it becomes nesessary to add meds to be able to reach the goal bp. Assessment & Plan (08/11/2018 11:04 AM CDT): bp good and no changds. But wioth planned wt off will ask to see in 2months and Check bp and if drops be prepared to cut bp pill in 1/2.cont k pil for nowHypertension, Medical treament revolves around weight control, salt management, and meds when necessary. long as weight loss is necessary and you are able to drop weight we can cont to monitor the blood pressure and not add meds. Once the weight is not changing then it becomes nesessary to add meds to be able to reach the goal bp. Assessment & Plan (08/07/2017 11:12 AM CDT): bp on high side of acc eptable and with w t would like to target tighter bp. Change to benicar/hct. Should have same impact on patsium. suppgest checking every wk or two to start to tract effect.Hypertension, Medical treament revolves around weight control, salt management, and meds when necessary. long as weight loss is necessary and you are able to drop weight we can cont to monitor the blood pressure and not add meds. Once the weight is not changing then it becomes nesessary to add meds to be able to reach the goal bp. Lymphadenopathy, axillary 10/23/2013 Resolved Problems Problem Noted Date Diagnosed Date Resolved Date BMI 34.0-34.9,adult 09/23/2019 04/20/20 20 Assessment & Plan (09/23/2019 5:52 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): congrats on wt off Morbid obesity with BMI of 40.0-44.9, adult 08/07/2017 09/23/2019 Assessment & Plan (08/11/2018 11:06 AM CDT): Morbid obesity is a bmi of 40 or more. Targeted weight loss with portion controll(calorie restriction) ,increased basal activity Levels along with adding an exercise program to lead to gradual weight loss,.Any program of change from weight watchers. To nutra system along with others work. Wants to try Naltrexone--bupropion and will try and discussed wt is a Chronic isue and not usually helpful to jump start anybody. Discussed victoza Assessment & Plan (08/07/2017 11:13 AM CDT): Snores but not falling asleep. Tired in am. Not awakening self. Not clearly slep apnea but c.o that if gain wt or simplyl get older has risk to turnintoMorbid obesity is a bmi of 40 or more. Targeted weight loss with portion controll(calorie restriction) ,increased basal activity Levels along with adding an exercise program to lead to gradual weight loss,.Any program of change from weight watchers. To [place] system along with others work. Abnormal glucose tolerance test (GTT) 03/06/2014 08/07/2017 Overview (01/23/2017): IMPAIRED ORAL GLUCSE PRIYANKA Depression 03/06/2014 08/07/2017 Overview (01/25/2017): DEPRESSIVE DISORDER NEC Encounters Date Type Department Care Team Description 01/27/2025 7:47 AM CDT - 01/27/2025 11:59 PM CDT Hospital Encounter [facility] - [facility] [address] [address] Abnormal mammogram Discharge Disposition: Discharge to home or self care from Last 3 Months Immunizations Immunization Administration Dates Next Due Hep B Vaccine 08/27/2005,03/20/2005,02/23/2005 Influenza, Quadrivalent, Spl it, Intramuscular 07/14/2019 Influenza, Quadrivalent, Spl it, Preservative Free, Intramuscular 07/19/2020 Influenza, Trivalent, IM (MDV) 07/27/2015 Influenza, Unspecified 07/06/2020,07/18/2018, MMR 08/16/2017,12/19/1992 Moderna SARS-CoV-2 Monovalen t Vaccination (12+ YRS) 11/12/2020,10/15/2020 Tdap 02/14/2017,02/23/2005 Surgical History Surgery Date Site/Laterality Comments TUBAL LIGATION TONSILLECTOMY CHOLECYSTECTOMY Medical History Medical History Date Comments Depression Depression Hypertension Hypertension Hx Other Medical Migraines Hx Other Medical uterine ablasio n; Comments: LNP 01/25/2016 - Frequent headaches Overweight Family History Medical History Relation Name Comments Depression Brother 1 Depression; Hypertension Brother 2 Hypertension; Hyperlipidemia Father Hyperlipidemi a; Hypertension Father Hypertension; Breast cancer Maternal cousin Depression Mother Depression; Hyperlipidemia Mother Hyperlipidemi a; Hypertension Mother Hypertension; Arthritis Other 1 Breast cancer Other 2 mat great aunt Depression Sister 1 Depression; Hypertension Sister 2 Hypertension; Relation Name Status Comments Brother 1 Brother 2 Father Maternal cousin Mother Other 1 Other 2 mat great aunt Sister 1 Sister 2 Social History Tobacco Use Types Packs/Day Years Used Date Smoking Tobacco: Former Smokeless Tobacco: Never Alcohol Use Standard Drinks/Week Comments No 0 (1 standard drink = 0.6 oz pur e alcohol) PHQ-2 Answer Date Recorded PHQ-2 Total Score (If total score is 3 or more points, staff should administer the PHQ-9) 5 03/01/2021 Comments No Sex and Gender Information Value Date Recorded Sex Assigned at Not on file Legal Sex Female 11:54 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 Gender Identity Not on file Sexual Orientation Not on file Obstetrics History Para Term AB IAB SAB Ectopic Multiple Livin g Live Births 2 Date Outcome GA Total Labor Labor/2nd/3rd Weight Sex Type Anes PTL Ryanne A1 A5 Name Clin Last Filed Vital Signs Vital Sign Reading Time Taken Comments Blood Pressure 138/88 03/29/2021 8:28 AM CDT Pulse 87 03/29/2021 8:28 AM CDT Temperature - - Respiratory Rate 18 03/01/2021 2:33 PM CDT Oxygen Saturation - - Inhaled Oxygen Concentration - - Weight 119.7 kg (264 lb) 03/29/2021 8:28 AM CDT Height 167.6 cm (5' 6 ) 03/29/2021 8:28 AM CDT Body Mass Index 42.61 03/29/2021 8:28 AM CDT Plan of Treatment Health Maintenance Due Date Last Done Comments Cervical Cancer Screening 1976 Colon Cancer Screening-Colonoscopy 1976 Hepatitis C Screening 1976 Depression Screening 03/01/2022 03/01/2021, 04/20/2020, 09/23/2019, Additional history exists Regular Well Visit/Exam 18-64 03/01/2022 03/01/2021, 08/11/2018, 08/07/2017 Covid-19 Vaccine ( season) 2024 11/12/2020, 10/15/2020 Influenza Vaccine (Season Ended) 2025 07/19/2020, 07/06/2020, 07/14/2019, Additional history exists Breast Cancer Screening-Mammogram 01/27/2026 01/27/2025, 01/08/2024, 11/27/2022, Additional history exists DTaP/Tdap/Td Vaccine (3 - Td or Tdap) 02/14/2027 02/14/2017, 02/23/2005 Hepatitis B Screening Completed 08/27/2005 , 03/20/2005, 02/23/2005 Pneumococcal vaccine <65 Aged Out No longer eligible based on patient's age to complete this topic Procedures Procedure Name Priority Date/Time Associated Diagnosis Comments DIAGNOSTIC MAMMOGRAM BILATERAL W ADARSH Schedule Routine, Read Routine (OP Routine) 01/27/2025 8:26 AM CDT Abnormal mammogram from Last 3 Months Results * Diagnostic Mammogram Bilateral W Adarsh (01/27/2025 8:26 AM CDT) Anatomical Region Laterality Modality Breast Bilateral Mammography 01/27/2025 8:40 AM CDT Impressions 01/27/2025 8:40 AM CDT Overall final assessment: BI-RADS Category 3: Probably benign 1. Increasing calcifications in the right breast upper-outer quadrant. Question fat necrosis. Diagnostic right mammogram in 6 months is recommended for ongoing surveillance 2. Negative left mammogram. Electronically signed by: Gwendolyn Brenner M.D. Narrative 01/27/2025 8:40 AM CDT EXAM: Bilateral 3-D tomosynthesis diagnostic HISTORY: 6 month follow-up right breast consultations. Annual mammogram COMPARISON: Prior mammograms dating back to 2016 FINDINGS: Bilateral 3-D tomosynthesis diagnostic mammogram was performed with spot compression magnification of right breast calcifications. TISSUE DENSITY:The breasts are heterogeneously dense, which may obscure small masses. There is a cluster calcifications in the upper and right breast that have increased since 2023. Several calcifications appear to have lucent centers and some appear to be forming along the periphery of a nodule. Findings suggest benign fat necrosis. Continue surveillance with diagnostic right mammogram in 6 months is recommended. The remainder of the mammogram is stable bilaterally. There is no new mass or distortion in either breast. The need for diagnostic right mammogram in 6 months was conveyed to the patient at the time of the study. Nick Elizabeth MD IMG MAMMO PROCEDURES Brittanie l Result from Last 3 Months Insurance [employer] OOS [employer] Member Subscriber Plan / Payer ( fective 2022-Present) Name:Fidelina Morales Relation to Subscriber:Spouse Name:FRANKY MORALES Date of :1975 (Work) Address: [facility] [place] [address] Payer ID:[id number] (NAIC) Group ID:[id number] Type:[employer] Address: [address] [place] [id number] [employer] [place] [employer] [place] Care Teams Technical Applications Scientist Relationship Specialty Start Date End Date Viri Gamez MD PCP - General Family Medicine 09/28/21
--- OUTSIDE RECORDS SUMMARY | 2025-02-16 08:58 | XMS_ITS | Clinical Summary ---
Author Organization [facility] Address [address] [place] [address] Care Team Providers Care Collection Card Clerk Name Role Phone Unknown, Provider Primary Care Provider Unavaila ble Source Comments [facility],non-owned Affiliates and Associated Physician Practices is amultiple site organization consisting of ambulatory clinics and hospital sitesin [place], [place], [place] and [place]. This disclosure is being madepursuant to the Care Everywhere program and may not contain all information available regarding this patient. Last updated 18.[facility] Allergies Active Allergy Reactions Criticality Noted Date Comments Lisinopril Cough 12/30/2024 Reaction: Cough, Medications * Be aware that medications may not be up to date on this document. Alwaysverify current medications with the patient. citalopram (CELEXA) 40 MG tablet Take 40 mg by mouth once daily. Active hydrochlorothiaz marisa (HYDRODIURIL) 25 MG tablet Take 25 mg by mouth once daily. Active Active Problems Problem Noted Date Diagnosed Date Lymphadenopathy, axillary 10/23/2013 Encounters Date Type Department Care Team Description 12/30/2024 5:35 PM CDT Video Visit [facility] [address] [place] [id number] Anita Molina APRN-CNP Nausea and vomiting, unspecified vomiting type ; Encounter to obtain excuse from work from Last 3 Months Social History Tobacco Use Types Packs/Day Years Used Date Smoking Tobacco: Never Smokeless Tobacco: Never Alcohol Use Standard Drinks/Week Comments No 0 (1 standard drink = 0.6 oz pur e alcohol) PHQ-2 Answer Date Recorded Patient Health Questionnaire-2 Score 0 12/30/2024 Comments Unknown Sex and Gender Information Value Date Recorded Sex Assigned at Not on file 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 Gender Identity Not on file Sexual Orientation Not on file Last Filed Vital Signs Vital Sign Reading Time Taken Comments Blood Pressure 130/79 08/01/2014 2:57 PM CDT Pulse 74 08/01/2014 2:30 PM CDT Temperature 36.7 C (98 F) 08/01/2014 2:57 PM CDT Respiratory Rate 16 08/01/2014 2:30 PM CDT Oxygen Saturation 98% 08/01/2014 2:30 PM CDT Inhaled Oxygen Concentration - - Weight 99.8 kg (220 lb) 08/01/2014 10:05 AM CDT Height 165.1 cm (5' 5 ) 08/01/2014 10:05 AM CDT Body Mass Index 36.61 08/01/2014 10:05 AM CDT Plan of Treatment Health Maintenance Due Date Last Done Comments COLOGUARD (AGES 45-75) - COLON CA SCREENING 1976 COLON MONITORING 1976 COLONOSCOPY - COLON CA SCREENING 1976 CT COLONOGRAPHY - COLON CA SCREENING 1976 Colorectal Cancer Screening 1976 FIT - COLON CA SCREENING 1976 FLEX SIG - COLON CA SCREENING 1976 LIPID TESTING 1976 PAP SMEAR 1976 HIV SCREENING 01/09/1991 HEPATITIS C SCREENING 01/05/1994 DTAP/TDAP/TD VACCINES (1 - Tdap) 01/09/1995 HEPATITIS B VACCINE (1 of 3 - 19+ 3-dose series) 01/09/1995 COVID-19 VACCINE ( - season) 2024 08/29/2021, 11/12/2020, 10/15/2020 ZOSTER VACCINE (1 of 2) 01/09/2026 MAMMOGRAM 07/22/2026 07/22/2024, 12/20, 01/08/2024, Additional history exists INFLUENZA VACCINE Completed 07/14/2024, , 07/20/2022, Additional history exists DEPRESSION SCREENING Completed 12/30/2024 HIB VACCINE Aged Out No longer eligi ble based on patient's age to complete this topic HPV VACCINE Aged Out No longer eligi ble based on patient's age to complete this topic MENINGOCOCCAL (Group B) VACCINE SHARED DECISION-MAKING Aged Out No longer eligible based on patient's age to complete this topic MENINGOCOCCAL GROUPS A/C/Y/W VACCINE Aged Out No longer eligible based on patient's age to complete this topic Insurance [facility] [employer] [facility] [employer] [facility] Care Teams Collection Card Clerk Relationship Specialty Start Date End Date Unknown, Provider PCP - General 12/30/24
--- OUTSIDE RECORDS SUMMARY | 2025-02-16 08:58 | XMS_ITS | Referral Summary ---
Author Organization [facility] Address [address] [place] [address] Care Team Providers Care Technical Sme Name Role Phone Viri Gamez MD Primary Care Provider [phone] Encounters Date Type Department Care Team Description 01/27/2025 7:47 AM CDT - 01/27/2025 11:59 PM CDT Hospital Encounter [facility] - Imaging [address] [place] [phone] Abnormal mammogram Discharge Disposition: Discharge to home or self care from Last 3 Months Allergies Active Allergy Reactions Criticality Noted Date [...] 10/11/2020 Overview (10/12/2020): Patient had workup at [facility] for lump in the left upper outer [...] Plan (04/20/2020 5:09 PM CDT): Back to debi holden Assessment & Plan (09/23/2019 5:57 PM DISK RECOATER): Check with nov and expect to be [...] wt and season and covid rflair with depreisno adjsut meds . Up to date on [...] Flu shot at work. 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 [...] bp. Assessment & Plan (09/23/2019 5:51 PM DISK RECOATER): The bp good on meds as on [...] 20 Assessment & Plan (09/23/2019 5:52 PM DISK RECOATER): congrats on wt off Morbid obesity with [...] To nutra system along with others work. Abnormal glucose tolerance test (GTT) 03/06/2014 08/07/2017 Overview (01/23/2017): IMPAIRED ORAL GLUCSE PRIYANKA Depression 03/06/2014 08/07/2017 Overview (01/25/2017): DEPRESSIVE DISORDER NEC Immunizations Immunization Administration Dates Next Due Hep B Vaccine 08/27/2005,03/20/2005,02/23/2005 Influenza, Quadrivalent, Spl it, Intramuscular 07/14/2019 Influenza, Quadrivalent, Spl it, Preservative Free, Intramuscular 07/19/2020 Influenza, Trivalent, IM (MDV) 07/27/2015 Influenza, Unspecified 07/06/2020,07/18/2018, MMR 08/16/2017,12/19/1992 Moderna SARS-CoV-2 Monovalen t Vaccination (12+ YRS) 11/12/2020,10/15/2020 Tdap 02/14/2017,02/23/2005 Social History Tobacco Use Types Packs/Day Years [...] on file Legal Sex Female 11:54 PM DISK RECOATER Gender Identity Not on file Sexual Orientation [...] 03/29/2021 8:28 AM CDT Plan of Treatment Not on file Procedures Procedure Name Priority Date/Time Associated Diagnosis [...] l Result from Last 3 Months Insurance [employer] [place] [employer] [place] Care Teams Technical Sme Relationship Specialty Start Date End Date Viri Gamez MD PCP - General Family Medicine 09/28/21
--- OUTSIDE RECORDS SUMMARY | 2025-02-16 08:58 | XMS_ITS | Encounter Summary ---
Author Organization [facility] Address [address] [place] [address] Care Team Providers Care Yeast Culture Operator Name Role Phone Unknown, Provider Primary Care Provider Unavaila ble Encounter Details Date Type Department Care Team (Late st Contact Info) Description 10/23/2013 SS Outpatient Visit [facility]TERNAL [facility] DEPT Pippa Ventura W, DO [address] [facility] [address] [place] [address] Social History Tobacco Use Types Packs/Day Years Used Date Smoking Tobacco: Never Smokeless Tobacco: Never Alcohol Use Standard Drinks/Week Comments No 0 (1 standard drink = 0.6 oz pur e alcohol) Comments Unknown Sex and Gender Information Value Date Recorded Sex Assigned at Not on file 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
[2025-03-16 12:35] VITALS: BMI 37.5
--- NOTE | 2025-03-16 12:35 | P.SLEEP_ITS ---
Sleep Study Date of Study: 02/16/25 Ordering Provider: Grisel Galvin PA-C Interpreting Physician: Erlinda Cazares DO Sleep Study Type: Split Polysomnogram Height: 1.7 m Weight: 108.862 kg Body Mass Index: 37.5 Neck Circumference (inches): 16 Labelle: 9 Reason for Sleep Study Daytime hypersomnia Sleep History The patient is a 50-year-old female with previously diagnosed sleep apnea that had a sleep study ordered by her primary care due to daytime hypersomnia. She stopped using CPAP in 2021 after significant weight loss but her sleep started becoming on-restorative after weight gain. the patient denies awakening from sleep short of breath. She occasionally awakens at night with heartburn, belching or cough. She constantly snores loud enough that others complain. She occasionally has trouble sleeping when she has a cold. She rarely wakes up gasping for air throughout the night. She denies having breathing problems at night observed by herself or others. She denies sweating excessively at night. She denies having heart palpitations or irregular heartbeats during the night. She rarely falls asleep during the day but never while driving. She denies sleep paralysis, cataplexy and hypnagogic/ hypnopompic hallucinations. She rarely has trouble at school or work due to sleepiness. She denies feeling afraid of going to sleep. She denies having nightmares. She denies remembering her dreams. She denies having thoughts racing through her mind. She rarely feels sad, depressed or anxious. She denies having muscular tension. She denies noticing parts of her body jerk. She denies kicking during the night. She denies having crawling and aching feelings in her legs and denies having leg pain during the night. She denies grinding her teeth during sleep and denies awakening with morning jaw pain. She denies being bothered by pain during the day and denies being awakened by pain during the night. She occasionally wakes up feeling stiff in the morning. She occasionally wakes up with sore or achy muscles. She occasionally wakes up with pain in the neck, spine and other joints. She goes to bed between 10-11 p.m. on both weekdays and weekends. It takes her 30-60 minutes to fall asleep. She wakes up 1-2 times throughout the night to urinate and is able fall back asleep immediately. She wakes up between 4:30-5 a.m. on weekdays and between 7-8 a.m. on the weekends. She typically gets 5-7 hours of sleep per night. She will sometimes stay in bed after waking up in the morning. She currently lives with her children. She denies consuming any caffeinated beverages within 2 hours of bedtime. She denies engaging in physical exercise before bedtime. She will watch television before falling asleep. She denies taking naps in the afternoon or the evening. She denies consuming any caffeinated beverages throughout the day. She quit smoking cigarettes in 1995. She consumes 3 alcoholic beverages 1-2 times per month. She denies recreational drug use. [facility] Past Medical History Medical History Positive colorectal cancer screening using Cologuard test KIM (obstructive sleep apnea) (~09/2021) Depression Depression HTN (hypertension) Surgical History Surgical History Hx of ventral hernia repair Open reducible periumbilical incisional hernia repair without mesh on 06/07/23 SAW History of cholecystectomy H/O tubal ligation Family History Family History Mother Hypertension Depression Father High cholesterol Hypertension Sibling Pulmonary hypertension Sibling Depression Hypertension Alcohol abuse Grandparent Diabetes mellitus Social History Social History Smoking packs per day: 0.5 Smoking cigarettes per day: 10.0 Years smoked: 4 Smoking pack-years: 2.00 Smoking status: Former smoker Tobacco type: cigarettes Smoking end date: 10/21/95 Alcohol intake: never Substance use: never Substance use type: does not use Lack of Transportation: No Lack of Food: Never True Current Housing: I Have Housing Concerned About Future Housing: No Difficulty Paying Gas/Electric Bills: No Difficulty Paying for Meds: No Currently Unemployed: No Education: Master's Degree or Higher Difficulty w/ Childcare or Family Care: No Living arrangements: with family Additional living arrangements comments: Has a and two children. 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 Gender identity (if verbalized by the patient): Female Spiritual care concerns: No Agree to blood products: Yes Medications Home Medications ?Medication ?Instructions ?Recorded ?Confirmed ?Type Acidophilus Probiotic 1 tab-cap PO DAILY 05/30/23 12/16/24 History ascorbate [id number] 1 tab-cap PO DAILY 05/30/23 12/16/24 History citalopram 40 mg tablet 40 mg PO DAILY #30 tabs 08/19/23 12/16/24 Rx methylphenidate HCl 36 mg 36 mg PO QAM 02/26/24 12/16/24 History tablet,extended release 24 hr ([facility]cert[facility]) losartan 100 mg tablet 100 mg PO DAILY #90 tabs 09/06/24 12/16/24 Rx hydrochlorothiazide 25 mg tablet 25 mg PO DAILY #30 tabs 11/30/24 12/16/24 Rx desvenlafaxine 50 mg 50 mg PO DAILY 12/16/24 12/16/24 History tablet,extended release 24 hr semaglutide (weight loss) 0.5 0.5 mg (0.5 mL) subcut WEEKLY #2 mL 12/16/24 12/16/24 Rx mg/0.5 mL subcutaneous pen injector CPAP machine, tubing, and face mask #1 ea 12/17/24 12/17/24 Rx Sleep Procedure A full night spkit study using the [employer] multi-channel system recorded the standard physiologic parameters including EEG, EOG, submentalis EMG, anterior tibialis EMG, EKG, body position, nasal and oral airflow using nasal pressure sensor and thermistor.? Respiratory parameters of chest and abdominal movements were recorded with Respiratory Inductance Plethysmography belts. Oxygen saturation was recorded by pulse oximetry. Video monitoring was also performed. Sleep stages, periodic limb movements, and EEG arousals were scored in 30 second epochs according to the criteria of the AASM Scoring Manual. The Apnea-Hypopnea Index was calculated using CMS guidelines for definition of hypopnea with 4% O2 desaturations while scoring respiratory events. Sleep Architecture During the diagnostic portion of the study, the total recording time was 148.7 minutes. The total sleep time was 127.5 minutes. Sleep latency was 11.2 minutes.? REM sleep was not achieved during this portion of the study. Sleep Efficiency was 85.7%. The patient had 5 awakenings for an awakening index of 2.4. Wake after sleep onset time was 9.5 minutes. The patient spent 4.0 minutes, 3.1% of total sleep time in Stage N1. The patient spent 123.5 minutes, 96.9% in Stage N2. The patient spent 0.0 minutes, 0.0% in Stage N3. The patient spent 0.0 minutes, 0.0% in Stage REM sleep. At 12:58:21 AM the patient was placed on PAP treatment and was titrated at pressures ranging from 5 cm H20 up to 20 cm H20. During the treatment portion of the study, the total recording time was 275.6 minutes.? The total sleep time was 204.0 minutes. Sleep latency was 44.0 minutes. REM latency was 56.0 minutes. Sleep Efficiency was 74.0%. Wake after Sleep Onset time was 27.5 minutes. The patient spent 1.0 minutes, 0.5% of total sleep time in Stage N1. The patient spent 155.5 minutes, 76.2% in Stage N2. The patient spent 9.0 minutes, 4.4% in Stage N3. The patient spent 38.5 minutes, 18.9% in Stage REM. Respiratory Analysis During the diagnostic portion of the study, the patient had 52 hypopneas and 117 obstructive apneas for an overall Apnea Hypopnea Index of 79.5 events per hour. The REM Apnea Hypopnea Index was 0. The NREM Apnea Hypopnea Index was 79.5. The patient had a Central Apnea Hypopnea Index of 0. There was no evidence of Patrick-Laureano Respirations. During the treatment portion of the study, the patient had 62 hypopneas, 44 obstructive apneas, 1 mixed apnea and 3 central apneas for an overall Apnea Hypopnea Index of 32.4 events per hour. The REM Apnea Hypopnea Index was 31.2. The NREM Apnea Hypopnea Index was 32.6. The patient had a Central Apnea Hypopnea Index of 0.9. There was no evidence of Patrick-Laureano Respirations. The patient was started on CPAP 5 cm H2O and titrated to CPAP 20 cm H2O due to obstructive apneas and hypopneas. The patient was able to fall asleep starting on CPAP 5 cm H2O. The patient was able to achieve REM sleep starting on CPAP 17 cm H2O. The patient was able to achieve a residual AHI less than 5 with both NREM and REm sleep on the final pressure setting. On CPAP 20 cm H2O, the patient spent 54.5 minutes in NREM and 12.5 minutes in REM with no respiratory events, resulting in an AHI of 0. The patient had a sleep efficiency of 81.2% on this p ressure setting. Arousals During the diagnostic portion of the study, there were a total of 136 arousals for an arousal index of 64.0.? There were 102 respiratory arousals for an index of 48.0. There were 31 periodic limb movement arousals for an index of 14.6.? There were 20 isolated limb movement arousals for an index of 9.4. There were 18 spontaneous arousals for an index of 8.5. During the treatment portion of the study, there were a total of 99 arousals for an index of 29.1.? There were 51 respiratory arousals for an index of 15.0. There were 28 periodic limb movement arousals for an index of 8.2.? There were 17 isolated limb movement arousals for an index of 5.0. There were 21 spontaneous arousals for an index of 6.2. Periodic Limb Movements During the diagnostic portion of the study, the patient had 38 isolated limb movements with an index of 17.9. The patient had 63 periodic limb movements with an index of 29.6, which is elevated (normal < 15). The patient had a total of 101 limb movements with a total limb movement index of 47.5. During the treatment portion of the study, the patient had 31 isolated limb movements with an index of 9.1. The patient had 43 periodic limb movements with an index of 12.6. The patient had a total of 74 limb movements with a total limb movement index of 21.8. Oximetry Data During the diagnostic portion of the study, the patient had an average oxygen saturation of 92.6% in wake with a minimum oxygen saturation of 73% and a maximum oxygen saturation of 99%. The patient had an average oxygen saturation of 90.0% in sleep with a minimum oxygen saturation of 73.0% and a maximum oxygen saturation of 98.0%. The patient had 163 oxygen desaturations resulting in an Oxygen Desaturation Index of 76.7. The patient spent 46.2 minutes, 31.9% of total sleep time with an oxygen saturation less than 88%. During the treatment portion of the study, the patient had an average oxygen saturation of 96.0% in wake with a minimum oxygen saturation of 81.0% and a maximum oxygen saturation of 99.0%. The patient had an average oxygen saturation of 94.1% in sleep with a minimum oxygen saturation of 69.0% and a maximum oxygen saturation of 99.0%. The patient had 105 oxygen desaturations resulting in an Oxygen Desaturation Index of 30.9. The patient spent 20.1 minutes, 7.4% of total sleep time with an oxygen saturation less than 88%. Snoring Profile Moderate to loud snoring was present in the baseline portion of the study. The snoring never fully resolved but it became intermittent once the patient was titrated to 20 cm H2O. Cardiac Profile The EKG lead showed normal sinus rhythm. No arrhythmias or PVCs were seen. During the diagnostic portion of the study, the average pulse rate was 73.2 bpm.? The minimum pulse rate was 64.0 bpm. The maximum pulse rate was 90.0 bpm. During the treatment portion of the study, the average pulse rate was 69.4 bpm.? The minimum pulse rate was 59.0 bpm. The maximum pulse rate was 91.0 bpm. EEG Profile No signs of seizure activity seen. Assessment and Plan Assessment and Plan (1) KIM (obstructive sleep apnea): Onset Date: ~09/2021 Code(s): G47.33 - Obstructive sleep apnea (adult) (pediatric) Status: Acute Assessment and Plan: In the baseline portion of the study, the patient overall AHI 80.0 with desaturation down to 73%. This is consistent with severe sleep apnea. The patient was started on CPAP 5 cm H2O and titrated to CPAP 20 cm H2O due to obstructive apneas and hypopneas. The patient's sleep apnea resolved on the final pressure setting in the lateral position. We were unable to get any data with the patient in the supine position on the final pressure setting. I recommend that the patient be prescribed CPAP 20 cm H2O, size small Resmed AirTouch F20 full face mask, CPAP filters/tubing and heated humidity. If the patient's compliance data shows an elevated residual AHI, she will need a BPAP Titration as CPAP has a maximum pressure setting of 20 cm H2O. This should be used with all episodes of sleep.? Compliance should be reviewed within -90 days of starting therapy for usage greater than 4 hours per night greater than 70% of the nights. The patient should be asked about symptoms such as?excessive daytime sleepiness, quality of sleep, decreased nocturia, increased?mental functioning such as memory, mood, and concentration. Data The data obtained during this sleep study is adequate for interpretation. Certification This sleep study has been reviewed by a board certified sleep medicine physician.
== END 2025-02-17 07:19 | disposition home or self-care (01) ==
LOC: ANHCSM 08:36
PROVIDERS: PCP Family Medicine; Visit Provider Student in an Organized Health Care Education/Training Program
DX: G47.33 Obstructive sleep apnea (adult) (pediatric) (principal)
CPT/HCPCS: 95811